=== PATIENT | female | born 1990 | race Caucasian/White ===

== ENCOUNTER → 2017-04-09 02:19 | Observation (INO) ==
--- NOTE | 2017-04-08 22:21 | OB/GYN History & Physical ---
Date of Encounter: 04/08/17 Time of Encounter: 22:19 Assessment and Plan (1) 26 weeks gestation of Current visit: Yes Status: Acute heart tones 130s baseline with accelerations, CAT 1. [place] shows no contractions or uterine activity. Fetus is audibly active and movement is appreciated by mother (2) Abdominal tenderness, left lower quadrant Current visit: Yes Status: Acute Concern for possible placental abruption as patient has an anterior placenta by ultrasound during anatomy scan. Plan for ultrasound assessment of placenta Qualifiers: Presence of rebound: absent Qualified Code(s): R10.814 - Left lower quadrant abdominal tenderness (3) Fall as cause of accidental injury at home as place of occurrence Current visit: Yes Status: Acute Monitor for stability and evidence of abruption or labor. Blood type is known to be O+. Patient is cleared from labor and delivery she will be sent to emergency room for musculoskeletal evaluation Qualifiers: Encounter type: initial encounter Qualified Code(s): W19.XXXA - Unspecified fall, initial encounter; Y92.009 - Unspecified place in unspecified non-institutional (private) residence as the place of occurrence of the external cause; Y92.009 - Unspecified place in unspecified non-institutional ( private) residence as the place of occurrence of the external cause History of Present Illness Chief complaint: 26 weeks w/ fall HPI: Ms. Talbert is a 26 year old female 3 para 2 at 26 weeks and 5 days who presents to labor and delivery with this history of falling on her bottom at 2000 today. She reports slipping on a toy and thinks she may have hit her head on the [place] she went down but did not hit in the floor. She was short of breath when she first fell. She reports that her fetus has been moving since then. She denies any contractions, vaginal bleeding or loss of fluid but it is sore in the lower abdomen particularly on the left side. She denies any direct abdominal trauma. She feels sharp shooting pains of her back in the midline. She was able to void on arrival. Her blood type is O+. She received care with Dr. Navarro. She has a heart-shaped uterus and has had 2 sections. Her largest was 9 lbs. 9 oz. This is complicated by maternal obesity, history of at 2 and tobacco use Past Med Surg Social Fam HX - Past Medical History Source: patient, old records reviewed Medical history: no medical history, other ( issues) Psychiatric history: no psych history - Past Surgical History Surgical History: , other - Social History Smoking Status: Current every day smoker Smokeless Tobacco Status: No Alcohol use: none Drug use: none Current living situation: Home - Independent Obstetrical History - Pregnancies : 3 Para: 2 Term: 2 Livin Medications and Allergies No Known Home Drugs 09/30/15 [History] 3 Allergy/AdvReac Type Severity Reaction Status Date / Time Sulfa (Sulfonamide AdvReac Hives Unverified 09/13/15 08:45 Antibiotics) Review of System OB All systems PM: reviewed and no additional remarkable complaints except as stated - Constitutional Constitutional ROS IM: fatigue, weight gain - Gastrointestinal Gastrointestinal: abdominal pain (Left lower quadrant) - Genitourinary Genitourinary: urinary incontinence - Muscloskeletal Musculoskeletal: back pain Musculoskeletal: bilateral: hip pain - Neurological Nerological: radicular pain Exam - Vital Signs Vital signs: afeb, VSS - Constitutional Constitutional: well developed, well nourished, no acute distress, obese - HEENT HEENT: Normocephaly, Mucus Membranes Moist - Neck Neck exam: normal inspection, supple - Lungs Respiratory exam: CTAB - Cardiovascular Cardiovascular exam: RRR - Abdomen Abdomen: Present: bowel sounds normal, gravid. Absent: non tender (Soft with tenderness in the lower abdomen left greater than right, no peritoneal signs) Abdomen detail: right lower quadrant: tenderness, left lower quadrant: tenderness - Extremities Extremities exam: pedal edema, warm Deep Tendon Reflex Grade: 2+ Normal - Vulva Vulva: bilateral: normal - Vagina Vagina: Present: normal moisture - Comments Comments: No external evidence of trauma, melton or bruising to the back box or lower extremities. There were no melton on the abdomen Results All other labs normal.
[2017-04-09 00:01] LABS: Amphetamine Screen,Urine Negative ng/mL (Cutoff=1000); Barbiturate Screen,Urine Negative ng/mL (Cutoff=200); Benzodiazepines Screen,Urine Negative ng/mL (Cutoff=200); Cannabinoid Screen,Urine Negative ng/mL (Cutoff = 50); Cocaine Screen,Urine Negative ng/mL (Cutoff= 300); Opiate Screen,Urine Negative ng/mL (Cutoff=300); Phencyclidine Screen,Urine Negative ng/mL (Cutoff=25)
--- NOTE | 2017-04-09 02:40 | Discharge Summary ---
Date of Encounter: 04/09/17 Time of Encounter: 02:15 - Discharge Diagnosis (1) Fall as cause of accidental injury at home as place of occurrence Priority: Primary Status: Acute Comments: Monitoring - reassuring, NST reactive. Total of 4 hours of monitoring No vaginal bleeding Ultrasound: A single live intrauterine is present. heart rate measures 136 beats per minute. There is normal body and limb movement. The fetus is in transverse position. The placenta is located anteriorly extending to the right. TORIN 14.8 cm. Estimated weight is 1397 grams which correlates to 58.6 percentile. Estimated gestational age by current ultrasound is 28 weeks and 4 days. The placenta is unremarkable. Pt feels ready to be discharged - still having some back pain, but her abdominal pain seems mildly improved Recommended that she return to the ED for further evaluation of her pain Qualifiers: Encounter type: initial encounter Qualified Code(s): W19.XXXA - Unspecified fall, initial encounter; Y92.009 - Unspecified place in unspecified non-institutional (private) residence as the place of occurrence of the external cause; Y92.009 - Unspecified place in unspecified non-institutional ( private) residence as the place of occurrence of the external cause (2) 26 weeks gestation of Priority: Secondary Status: Acute (3) Abdominal tenderness, left lower quadrant Priority: Secondary Status: Acute Qualifiers: Presence of rebound: absent Qualified Code(s): R10.814 - Left lower quadrant abdominal tenderness - Discharge Medications Home Medications: No Known Home Drugs 09/30/15 [History] Allergies/Adverse Reactions: 3 Allergy/AdvReac Type Severity Reaction Status Date / Time Sulfa (Sulfonamide AdvReac Hives Unverified 09/13/15 08:45 Antibiotics) sulfamethoxazole AdvReac Hives Verified 04/08/17 22:42 [From Bactrim] trimethoprim [From Bactrim] AdvReac Hives Verified 04/08/17 22:42 Data Procedures and tests throughout hospitalization: Laboratory Tests 04/08/17 23:45 Urine Opiates Screen Negative Ur Barbiturates Screen Negative Ur Phencyclidine Scrn Negative Ur Amphetamines Screen Negative U Benzodiazepines Scrn Negative Urine Cocaine Screen Negative U Marijuana (THC) Screen Negative Labs on day of discharge: Labs from last 24 hours 04/08/17 23:45 Urine Opiates Screen Negative Ur Barbiturates Screen Negative Ur Phencyclidine Scrn Negative Ur Amphetamines Screen Negative U Benzodiazepines Scrn Negative Urine Cocaine Screen Negative U Marijuana (THC) Screen Negative - Impressions ITS Impressions Obstetrics Ultrasound 04/08/17 22:20 IMPRESSION: Single live intrauterine with gestational age of 20 weeks and 4 days by current sonographic biometry. The estimated due date is 06/27/2017. The placenta is unremarkable. D/ / Julio Cesar Benavides MD / Julio Cesar Benavides MD Interpreting Provider: Julio Cesar Benavides MD Date of admission: 04/08/17 22:01 Discharging clinician: Yomi Perez Anticipated date of discharge: 04/09/17 - Patient Status Disposition: Transfer Other Condition: Good Functional capacity at discharge: independent ambulation Overall status at discharge: patient is progressing back to baseline - Discharge Instructions Additional Instructions: LABOR AND DELIVERY DISCHARGE INSTRUCTIONS Signs and Symptoms to be Reported to your Doctor Immediately: * Sudden gush, continuous or intermittent lead of fluid from vagina (note the time of gush and color of fluid) * Onset of bright red vaginal bleeding with or without pain (if you had a vaginal exam during this visit you may notice some dark red spotting. This is normal.) * Lower abdominal cramping or backache that is premenstrual-like feeling. * More than 6 contractions in one hour. * Burning during urination, having to urinate more frequently or pain in your mid-back. * A change in the baby's activity. This could be an increase or decrease in activity. * Severe headache which does not go away with tylenol. * Sudden swelling in the face, hands, arms and/or legs. * Upper abdominal pain - sometimes associated with heartburn or nausea and is not relieved by Maalox, Mylanta or Tums. * Dizziness or blurred vision or visual disturbances (seeing stars/lights). * Kick Counts One hour after a meal, lay down on one side in a quiet place. Count the number of young the baby moves during an hour. If less than 6 movements, notify your physician. Diet: *Force fluids - 8-10 tall glasses of fluid per day. May include popsicles and jello. *Limit caffeine - this includes chocolate, coffee, tea, any soft drink containing such as all kenroy, Georgi Yellow and Mountain Dew - Diet and Activity Activity: increase activity as tolerated Diet: advance to your usual diet Hospital Course BLOOD BANK MANAGER Reason for admission: other (Fall in ) Discharge diagnosis: other (Fall in ) Time Attestation: Total time spent providing and/or coordinating discharge services: Time Spent: Greater than 30 minutes Exam - Constitutional General appearance IM: A&O X 3, no acute distress - Respiratory Respiratory exam: Present: CTAB - Cardiovascular Cardiovascular exam IM: Present: RRR, +S1, +S2 - GI/Abdominal GI/Abdominal exam IM: normal bowel sounds, tenderness (left lower quadrant, improving), no peritoneal signs - Extremities Exam Extremities exam IM: Present: normal capillary refill, normal inspection, pedal edema (mild bilaterally) - Neurological Exam Neurological exam: alert, no focal deficits - VTE Reasons for not Prescribing Prophylaxis: Treatment not Indicated - Low risk for VTE - Attending Attestation I examined this patient and my medical decision-making was reviewed with the Resident Physician. I agree with the documented findings, disposition and treatment plan as described except to the extent set forth below.
== END | disposition other institution (70) ==
LOC: 1NENULAB
PROVIDERS: ADMIT Obstetrics & Gynecology; ATTEND Obstetrics & Gynecology

== ENCOUNTER 2017-06-04 15:14 | Inpatient (IN) ==
[2017-06-04] MEDS ORDERED: 0.9 % Sodium Chloride 1,000 ML IVC ONE (16:37)
[2017-06-04 16:59] LABS: Basophils % 0.3 %; Eosinophils % 0.1 %; Hematocrit 38.8 % (35.3-44.9); Hemoglobin 12.3 g/dL (11.5-15.4); Immature Granulocytes % 1.5 % (0-4); Lymphocytes % 7.2 %; Mean Corpuscular HGB Conc 31.7 g/dL (31.6-35.5); Mean Corpuscular Hemoglobin 25.8 pg (28.0-33.3); Mean Platelet Volume 9.8 fL (9.4-12.4); Monocytes % 7.6 %; Platelet Count 293 K/mcL (140-400); Red Blood Count 4.76 M/mcL (3.82-4.97); Red Cell Distribution Width 14.6 % (11.5-14.5); Segmented Neutrophils % 83.3 %
[2017-06-04 17:00] LABS: Mean Corpuscular Volume 81.5 fL (83.0-100.0)
[2017-06-04 17:22] LABS: BUN/Creatinine Ratio 5 (6-26); Blood Urea Nitrogen 3 mg/dL (6-20); Calcium 9.2 mg/dL (8.6-10.3); Carbon Dioxide 21 mEq/L (23-29); Chloride 101 mEq/L (98-107); Glucose 89 mg/dL (70-105); Osmolality,Calculated 268 (280-300); Potassium 3.5 mEq/L (3.5-5.1); Sodium 131 mEq/L (136-145); eGFR For African Americans > 60 (> 60); eGFR For Non-African Americans > 60 (> 60)
--- NOTE | 2017-06-04 18:34 | Emergency Department Note ---
Disposition <Hussein Prather Fernando - Last Filed: 06/04/17 20:00> Time of Disposition: 18:56 <Antelmo Mccarthy - Last Filed: 06/04/17 20:22> Clinical Impression: Flu, Myalgia, contractions Nausea and vomiting Qualifiers: Vomiting type: unspecified Vomiting Intractability: non-intractable Qualified Code(s): R11.2 - Nausea with vomiting, unspecified Disposition: Admitted As Inpatient Condition: Fair URI/Sore Throat HPI - General Source: patient Limitations: no limitations Nursing Notes Reviewed: Yes Vital Signs Reviewed: Yes <Hussein Prather - Last Filed: 06/04/17 20:00> - General Source: patient Limitations: no limitations Nursing Notes Reviewed: Yes Vital Signs Reviewed: Yes <Antelmo Mccarthy - Last Filed: 06/04/17 20:22> - General Chief Complaint: ED Upper Respiratory Infection Stated Complaint: flu like symptoms Time Seen by Provider: 06/04/17 16:22 - History of Present Illness HPI Narrative: 26-year-old female who complains of flulike symptoms of myalgias, shortness of breath, cough congestion sinus pressure, chills, shortness of breath and weakness. She also complains of severe abdominal cramping bilateral flanks. Davian and has nausea and vomiting that started one day ago times for bouts and 4 bouts today. Patient is 34 weeks gestation and is a [id number]. Patient denies any other medical conditions. (Antelmo Mccarthy) - Related Data Home Medications Medication Instructions Recorded Confirmed Pnv95/Ferrous Fumarate/FA 1 each PO DAILY 06/04/17 06/04/17 [ Vitamin Tablet] Allergies Allergy/AdvReac Type Severity Reaction Status Date / Time Sulfa (Sulfonamide AdvReac Hives Unverified 06/04/17 15:21 Antibiotics) sulfamethoxazole AdvReac Hives Verified 06/04/17 15:21 [From Bactrim] trimethoprim [From Bactrim] AdvReac Hives Verified 06/04/17 15:21 All systems ED: reviewed and negative except as stated. Review of Systems: As Per HPI Constitutional: Reports: fever, chills, weakness Respiratory: Reports: cough, dyspnea, sputum production. Denies: hemoptysis Gastrointestinal: Reports: abdominal pain, nausea, vomiting. Denies: diarrhea, hematemesis, melena, hematochezia Genitourinary: Reports: urgency, dysuria, frequency. Denies: hematuria, discharge Musculoskeletal: Denies: back pain, neck pain Integumentary: Denies: rash <Antelmo Mccarthy - Last Filed: 06/04/17 20:22> URI PMH - Past Medical History Medical history: Reports: no medical history, other Surgical history: Reports: , cholecystectomy, other Psychiatric history: Reports: no psych history CASINO FLOORPERSON history: Reports: no CASINO FLOORPERSON history - Social History Smoking Status: Current every day smoker Alcohol use: Reports: none Drug use: Reports: none <Antelmo Mccarthy - Last Filed: 06/04/17 20:22> Physical Exam <Hussein Prather - Last Filed: 06/04/17 20:00> - General Limitations: no limitations General appearance: alert <Antelmo Mccarthy - Last Filed: 06/04/17 20:22> Vital Signs Temperature 99.3 F 06/04/17 15:22 Pulse Rate 136 06/04/17 15:22 Respiratory Rate 22 06/04/17 15:22 Blood Pressure 113/76 06/04/17 15:22 O2 Sat by Pulse Oximetry 96 06/04/17 15:22 Temperature 99.3 F 06/04/17 15:22 Pulse Rate 120 06/04/17 18:19 Respiratory Rate 18 06/04/17 18:19 Blood Pressure 135/68 06/04/17 18:19 O2 Sat by Pulse Oximetry 96 06/04/17 18:19 Oxygen Delivery Oxygen Delivery Room Air CONSTITUTIONAL: Alert and oriented X3, well-nourished, well appearing, in no apparent distress HEAD: Normocephalic; atraumatic. EYES: PERRL, no scleral icterus. NOSE: The nose is normal in appearance without rhinorrhea RESP: Normal chest excursion with respiration; breath sounds clear and equal bilaterally; no wheezes, rhonchi, or rales CARD: Regular rhythm, without murmurs, rub or gallop ABD: Non-distended; non-tender, soft,without rigidity, rebound or guarding SKIN: Normal for age and race; warm and dry; no apparent lesions POC US: heart rate 133, good motion (Antelmo Mccarthy) Vital Signs Temperature 99.3 F 06/04/17 15:22 Pulse Rate 136 06/04/17 15:22 Respiratory Rate 22 06/04/17 15:22 Blood Pressure 113/76 06/04/17 15:22 O2 Sat by Pulse Oximetry 96 06/04/17 15:22 Temperature 99.4 F 06/04/17 19:54 Pulse Rate 114 06/04/17 19:54 Respiratory Rate 16 06/04/17 19:54 Blood Pressure 129/84 06/04/17 19:54 O2 Sat by Pulse Oximetry 93 06/04/17 19:54 Oxygen Delivery Oxygen Delivery Room Air Upper Respiratory Infection - Lab Data Result diagrams: 06/04/17 16:40 06/04/17 16:40 <Hussein Prather - Last Filed: 06/04/17 20:00> - Lab Data Lab results reviewed: Yes I reviewed the patient's lab results. Result diagrams: 06/04/17 16:40 06/04/17 16:40 - Radiology Data Radiology results reviewed: Yes I reviewed the patient's radiology results. <Antelmo Mccarthy - Last Filed: 06/04/17 20:22> - MDM Narrative Medical decision making narrative: Patient 34 weeks gestation of third complicated by viral illness. Patient tested positive for flu. Patient's fetus has good heart tones at 133, and good motion. OB was consulted since patient is unable tolerate by mouth intake. Patient is tachycardic, tachypneic, and having abdominal contractions most likely from irritability caused by viral illness. Chest x-ray negative for signs of pneumonia. Patient has a mildly elevated WBC count of 13.2 most likely from stress and . Other lab findings clinically unremarkable. Discussion with Tatiana Gaona veneer stacker of OB: She recommends overnight admission, but cannot take her down in the OB sherman because of the flu. Patient will be admitted to medicine floor and hospitalist will be consult by OB. Patient understands and agrees to treatment plan. Patient still was not tolerating oral fluids without emesis. Patient is receiving IV normal saline. Patient is currently still having flank cramping, but is not in severe distress. (Antelmo Mccarthy) - Lab Data Lab Results 06/04/17 06/04/17 06/04/17 Range/Units 16:40 16:40 18:40 WBC 13.2 H (4.3-11.1) K/mcL RBC 4.76 (3.82-4.97) M/mcL Hgb 12.3 (11.5-15.4) g/dL Hct 38.8 (35.3-44.9) % MCV 81.5 L D (83.0-100.0) fL MCH 25.8 L (28.0-33.3) pg MCHC 31.7 (31.6-35.5) g/dL RDW 14.6 H (11.5-14.5) % Plt Count 293 (140-400) K/mcL MPV 9.8 (9.4-12.4) fL Immature Gran % 1.5 (0-4) % Seg Neutrophils % 83.3 % Lymphocytes % 7.2 % Monocytes % 7.6 % Eosinophils % 0.1 % Basophils % 0.3 % Neutrophils # 11.0 H (1.6-8.9) K/mcL Lymphocytes # 1.0 (0.6-4.6) K/mcL Monocytes # 1.0 (0.0-1.3) K/mcL Eosinophils # 0.0 (0.0-0.6) K/mcL Basophils # 0.0 (0.0-0.2) K/mcL Sodium 131 L (136-145) mEq/L Potassium 3.5 (3.5-5.1) mEq/L Chloride 101 (98-107) mEq/L Carbon Dioxide 21 L (23-29) mEq/L BUN 3 L (6-20) mg/dL Creatinine 0.57 L (0.60-1.20) mg/dL Est GFR ( Amer) > 60 (> 60) Est GFR (Non-Af Amer) > 60 (> 60) BUN/Creatinine Ratio 5 L (6-26) Glucose 89 (70-105) mg/dL Calculated Osmolality 268 L (280-300) Calcium 9.2 (8.6-10.3) mg/dL Urine Color Yellow (Yellow) Urine Clarity Cloudy A (Clear) Urine pH 6.5 (5.0-8.0) pH Units Ur Specific [place] < 1.005 L (1.010-1.025) Urine Protein Negative (Neg-Trace) mg/dL Urine Glucose (UA) Normal (Normal) mg/dL Urine Ketones Trace H (Negative) mg/dL Urine Blood Trace H (Negative) Urine Nitrite Negative (Negative) Urine Bilirubin Negative (Negative) Urine Urobilinogen Normal (Normal) mg/dL Ur Leukocyte Esterase Negative (Negative) Urine Microscopic RBC 3-5 H (0-3) per hpf Urine Microscopic WBC 3-5 H (0-3) per hpf Ur Squamous Epith Cells Many H (None-Few) per lpf Urine Bacteria Few (None-Few) per hpf Hyaline Casts None Seen (None-Few) per lpf - Radiology Data Chest X-Ray 06/04/17 16:38 IMPRESSION: Unremarkable chest. D/ / Lj Millan MD / Lj Millan MD Interpreting Provider: Lj Millan MD (Antelmo Mccarthy) Attestation Statement <Hussein Prather - Last Filed: 06/04/17 20:00> <Antelmo Mccarthy - Last Filed: 06/04/17 20:22> - Attestation Attestation: I, Hussein Prather, examined this patient and my medical decision-making was reviewed with the VESSEL ORDINARY SEAMAN/PA/Advanced Practice Nurse/Resident Physician. I agree with the documented findings, disposition and treatment plan as described except to the extent set forth below. 26-year-old female presents emergency Department with concerns of flulike symptoms and abdominal pain. Patient is 34 weeks gestation with scheduled in [address] Navarro for her OB care. Patient reports generalized body aches and is influenza a positive on testing in the emergency department. The OB physician was notified of the patient's arrival and OB nursing staff performed heart tones which showed a rate in the 120s. Patient has difficulty tolerating by mouth intake in the emergency department. Her rate improved with IV fluids. BP within normal limits. Patient feels comfortable with plan for admission to hospital for further care and evaluation. She was given Tamiflu in the emergency department. (Hussein Prather )
[2017-06-04] MEDS ORDERED: Acetaminophen 325 MG TABLET PO ONE (18:54)
[2017-06-04 19:00] LABS: Bilirubin,Urine Negative (Negative); Blood,Urine Trace (Negative); Clarity,Urine Cloudy (Clear); Color,Urine Yellow (Yellow); Glucose,Urine (UA) Normal (Normal); Ketones,Urine Trace mg/dL (Negative); Leukocyte Esterase,Urine Negative (Negative); Nitrite,Urine Negative (Negative); PH,Urine 6.5 pH Units (5.0-8.0); Protein,Urine Negative (Neg-Trace); Specific Gravity,Urine < 1.005 (1.010-1.025); Urobilinogen,Urine Normal (Normal)
[2017-06-04 19:02] LABS: Bacteria,Urine Few per hpf (None-Few); Hyaline Casts,Urine None Seen per lpf (None-Few); Squamous Epithelial Cell,Urine Many per lpf (None-Few)
[2017-06-04] MEDS ORDERED: Famotidine 20 MG/2 ML VIAL IVP PRN (19:42)
[2017-06-04] MEDS ORDERED: Ondansetron 4 MG/2 ML VIAL IVP PRN (19:42)
[2017-06-04] MEDS ORDERED: Naloxone 0.4 MG/ML INJ IVP PRN (19:42)
[2017-06-04] MEDS ORDERED: Acetaminophen 325 MG TABLET PO PRN (19:48)
[2017-06-04] MEDS ORDERED: Ringers Solution, Lactated 1,000 ML IVC ONE (20:40)
--- NOTE | 2017-06-04 21:14 | OB/GYN History & Physical ---
Date of Encounter: 06/04/17 Time of Encounter: 20:20 Assessment and Plan (1) 34 weeks gestation of Current visit: Yes Status: Acute admit for observation consult hospitalist for medical management (2) Influenza A Current visit: Yes Status: Acute Tamiflu (3) Cough Current visit: Yes Status: Acute Robitussin q 6 prn History of Present Illness Chief complaint: Influenza A, 34w6d gestation HPI: Ms. Talbert is a 26 year old female @ 34w6d presented to ER with c/o flu like symptoms including cough congestion sinus pressure, chills, shortness of breath and weakness. She also complains abdominal pain and cramping following nausea and vomiting. Patient reports she is unsure if she had a fever due to taking tylenol. Patient last received Tylenol in ER prior to being transferred to unit. Past Med Surg Social Fam HX - Past Medical History Source: patient Medical history: no medical history, other Psychiatric history: no psych history - Past Surgical History Surgical History: , cholecystectomy, other - Social History Smoking Status: Current every day smoker Smokeless Tobacco Status: No Alcohol use: none Drug use: none Activity Level: Independent ambulation Recent Out of Country Travel Within the Last 8 Weeks: No Exposure or Possible Exposure to Illness During Travel: No - Family History Mother Living Status: Still Living Hx Family Cardiac Disorders: No Hx Family Respiratory Disorders: No Hx Family Cancer: No Hx Family GI Disorders: No Hx Family Endocrine Disorder: No Hx Family Neuromuscular Disorders: No Hx Family Neurologic Disorders: No Hx Family HEENT Disorders: No Hx Family Autoimmune Disorders: No Obstetrical History - Pregnancies : 3 Para: 2 Term: 2 : 0 Ab's: 0 Livin Medications and Allergies Pnv95/Ferrous Fumarate/FA [ Vitamin Tablet] 1 each PO DAILY 06/04/17 [ History] 3 Allergy/AdvReac Type Severity Reaction Status Date / Time Sulfa (Sulfonamide AdvReac Hives Unverified 06/04/17 15:21 Antibiotics) sulfamethoxazole AdvReac Hives Verified 06/04/17 15:21 [From Bactrim] trimethoprim [From Bactrim] AdvReac Hives Verified 06/04/17 15:21 Review of System OB - Constitutional Constitutional ROS IM: chills, fatigue, fever(s) (unsure), no headache(s) - Cardiovascular Cardiovascular: no chest pain, no lightheadedness, no palpitations, no syncope - Respiratory Respiratory: cough, no wheezing - Gastrointestinal Gastrointestinal: abdominal pain (lower abdominal pain after coughing), nausea, vomiting, no diarrhea, no heartburn - Genitourinary Genitourinary: no abnormal vaginal bleeding, no difficulty urinating, no dysuria , no urinary frequency, no urinary incontinence, no urinary urgency, no vaginal discharge, no vaginal odor, no vaginal pruritis Exam - Vital Signs Vital signs: Initial Vital Signs Temp Pulse Resp BP Pulse Ox 99.3 F 136 22 113/76 96 06/04/17 15:22 06/04/17 15:22 06/04/17 15:22 06/04/17 15:22 06/04/17 15:22 - Constitutional Constitutional: well developed, well nourished, obese - HEENT HEENT: Normocephaly - Neck Neck exam: full ROM, supple - Lungs Respiratory exam: CTAB - Cardiovascular Cardiovascular exam: tachycardia - Abdomen Abdomen: Present: bowel sounds normal, gravid, non tender - Extremities Extremities exam: full ROM, normal capillary refill, normal inspection Deep Tendon Reflex Grade: 2+ Normal - Cervix Dilation: 0 Station: -3 - Uterus Uterus exam: Present: normal size, normal contour - Comments Comments: NST:FHR 130 bpm moderate variability +15x15 accels no decels noted. Contractions 3-5 min apart. Discussed NST with Dr. Hobbs order given to discontinue monitoring at this time. Will repeat in am and prn if patient reports feeling contractions. Results Result Diagrams: 06/04/17 16:40 06/04/17 16:40 Abnormal lab results WBC 13.2 K/mcL (4.3-11.1) H 06/04/17 16:40 MCV 81.5 fL (83.0-100.0) L D 06/04/17 16:40 MCH 25.8 pg (28.0-33.3) L 06/04/17 16:40 RDW 14.6 % (11.5-14.5) H 06/04/17 16:40 Neutrophils # 11.0 K/mcL (1.6-8.9) H 06/04/17 16:40 Sodium 131 mEq/L (136-145) L 06/04/17 16:40 Carbon Dioxide 21 mEq/L (23-29) L 06/04/17 16:40 BUN 3 mg/dL (6-20) L 06/04/17 16:40 Creatinine 0.57 mg/dL (0.60-1.20) L 06/04/17 16:40 BUN/Creatinine Ratio 5 (6-26) L 06/04/17 16:40 Calculated Osmolality 268 (280-300) L 06/04/17 16:40 Urine Clarity Cloudy (Clear) A 06/04/17 18:40 Ur Specific [place] < 1.005 (1.010-1.025) L 06/04/17 18:40 Urine Ketones Trace mg/dL (Negative) H 06/04/17 18:40 Urine Blood Trace (Negative) H 06/04/17 18:40 Urine Microscopic RBC 3-5 per hpf (0-3) H 06/04/17 18:40 Urine Microscopic WBC 3-5 per hpf (0-3) H 06/04/17 18:40 Ur Squamous Epith Cells Many per lpf (None-Few) H 06/04/17 18:40 All other labs normal. - VTE Reasons for not Prescribing Prophylaxis: Treatment not Indicated - Low risk for VTE
[2017-06-04] MEDS: Ringers Solution, Lactated 1,000 ML IVC SCH (22:09)
[2017-06-05] MEDS: GuaiFENesin Liq 200 MG/10 ML UDC PO PRN ×2 (00:59→08:15)
[2017-06-05] MEDS: Ringers Solution, Lactated 1,000 ML IVC SCH (06:20)
--- NOTE | 2017-06-05 11:13 | Discharge Summary ---
Date of Encounter: 06/05/17 Time of Encounter: 11:12 - Discharge Diagnosis (1) Influenza A Priority: Primary Status: Acute Comments: Complete Tamiflu for 5 days Discharge home today Follow up with [employer] next week (2) 35 weeks gestation of Priority: Secondary Status: Acute Comments: Return to office for routine OB care next week. Take full course of Tamiflu - Discharge Medications Prescriptions: Oseltamivir [Tamiflu] 75 mg PO BID #8 capsule Home Medications: Pnv95/Ferrous Fumarate/FA [ Vitamin Tablet] 1 each PO DAILY 06/04/17 [ History] Acetaminophen [Tylenol] 650 mg PO Q6HR PRN tablet 06/05/17 [Rx] Oseltamivir [Tamiflu] 75 mg PO BID #8 capsule 06/05/17 [Rx] Allergies/Adverse Reactions: 3 Allergy/AdvReac Type Severity Reaction Status Date / Time Sulfa (Sulfonamide AdvReac Hives Unverified 06/04/17 15:21 Antibiotics) sulfamethoxazole AdvReac Hives Verified 06/04/17 15:21 [From Bactrim] trimethoprim [From Bactrim] AdvReac Hives Verified 06/04/17 15:21 Date of admission: 06/05/17 03:11 Primary care physician: PCP NONE Discharging clinician: Luisana Santos Anticipated date of discharge: 06/05/17 - Patient Status Disposition: Home, Self-Care Condition: Fair Functional capacity at discharge: independent ambulation Overall status at discharge: patient is progressing back to baseline - Discharge Instructions Follow Up With: NONE,PCP [Primary Care Provider] - Joelle Navarro, [Partnered Physician] - - Diet and Activity Activity: resume usual activities as tolerated Diet: regular diet Hospital Course [employer] Reason for admission: other (Flu symptoms) Hospital course: 26-year-old at 34w6d admitted for Influenza A with tachycardia. She received IV fluids, symptom treatment and tamiflu overnight. Today she reports feeling better and desires discharge home. To follow up in office with Dr. Navarro next week. Time Attestation: Total time spent providing and/or coordinating discharge services: Time Spent: Less than 30 minutes Exam - Constitutional Vitals: Temp Pulse Resp BP Pulse Ox 98.0 F 99 18 120/78 95 06/05/17 07:43 06/05/17 07:43 06/05/17 07:43 06/05/17 07:43 06/05/17 07:43 General appearance IM: A&O X 3, pleasant, no acute distress - Respiratory Respiratory exam: Present: decreased breath sounds, CTAB - Cardiovascular Cardiovascular exam IM: Present: RRR, +S1, +S2 - GI/Abdominal GI/Abdominal exam IM: normal bowel sounds, soft - Rectal Rectal exam: deferred - Extremities Exam Extremities exam IM: Present: full ROM, normal capillary refill, normal inspection - Neurological Exam Neurological exam: alert, normal gait, oriented X3 - VTE Reasons for not Prescribing Prophylaxis: Treatment not Indicated - Low risk for VTE
[2017-06-05 11:39] VITALS: BP 103/63
== END 2017-06-05 12:03 | disposition home or self-care (01) | DRG 781 ==
LOC: 3BNU 15:14 → EMEROO 15:14 → 3BNU 19:26
PROVIDERS: ADMIT Advanced Practice Midwife; ATTEND Advanced Practice Midwife

== ENCOUNTER 2017-06-16 23:14 | Inpatient (IN) ==
--- NOTE | 2017-06-17 00:05 | Emergency Department Note ---
Disposition Clinical Impression: Multifocal pneumonia, Hypoxemia Qualifiers: Weeks of gestation: 36 weeks Qualified Code(s): Z3A.36 - 36 weeks gestation of Disposition: Admitted As Inpatient Condition: Fair Time of Disposition: 05:11 URI/Sore Throat HPI - General Chief Complaint: ED Upper Respiratory Infection Stated Complaint: RIGHT SIDE RIB PAIN 36 WEEKS PREG. Time Seen by Provider: 06/17/17 00:00 Source: patient Mode of arrival: ambulatory Limitations: no limitations Nursing Notes Reviewed: Yes Vital Signs Reviewed: Yes - History of Present Illness HPI Narrative: Patient is a 26-year-old female who patient stated [facility] ED with a chief complaint of worsening cough. Patient states she was diagnosed with influenza A several weeks ago and was admitted to the hospital and given Tamiflu. She states since then, she has continued to worsen. Patient is a smoker and continues to smoke daily. States she coughed really hard and had severe right-sided lower rib pain. Denies any nausea, vomiting. States she has had chills. No problems with urination or bowel movements. No abdominal pain. Patient is at 36 weeks. Pt Subjective Complaint: cough Onset (ago): week(s) Duration: gradually worsening Severity: severe Improves with: nothing Worsens with: nothing Associated symptoms: Reports: chills, cough. Denies: nausea, vomiting, dysuria Treatments prior to arrival: other healthcare encounter for this problem - Related Data Home Medications Medication Instructions Recorded Confirmed Pnv95/Ferrous Fumarate/FA 1 each PO DAILY 06/04/17 06/17/17 [ Vitamin Tablet] Previous Rx's Medication Instructions Recorded Acetaminophen [Tylenol] 650 mg PO Q6HR PRN tablet 06/05/17 Allergies Allergy/AdvReac Type Severity Reaction Status Date / Time Sulfa (Sulfonamide AdvReac Hives Verified 06/16/17 23:17 Antibiotics) sulfamethoxazole AdvReac Hives Verified 06/16/17 23:17 [From Bactrim] trimethoprim [From Bactrim] AdvReac Hives Verified 06/16/17 23:17 All systems ED: reviewed and negative except as stated. URI PMH - Past Medical History Medical history: Reports: no medical history, other Surgical history: Reports: , cholecystectomy, other Psychiatric history: Reports: no psych history MEDICAL RECORDS TECH history: Reports: no MEDICAL RECORDS TECH history - Social History Smoking Status: Current every day smoker Alcohol use: Reports: none Drug use: Reports: none Physical Exam - General Limitations: no limitations General appearance: alert, in no apparent distress - Head Head exam: atraumatic, normocephalic, normal inspection - Eye Eye exam: Present: normal appearance, EOMI - ENT ENT exam: normal exam, normal oropharynx, mucous membranes moist - Neck Neck exam: Present: normal inspection, full ROM, trachea midline - Chest Chest inspection: Present: normal inspection, symmetric chest wall rise - Respiratory Respiratory exam: Present: other (decreased breath sounds b/l) - Cardiovascular Cardiovascular exam: Present: regular rate, normal rhythm, normal heart sounds - Abdominal Exam Abdominal exam: Present: soft, Non-Tender, other (gravid uterus). Absent: tenderness, distention, guarding, rebound, rigidity - Extremities Exam Extremities exam: Present: normal inspection, full ROM. Absent: tenderness, pedal edema - Neurological Exam Neurological exam: Present: alert, oriented X3 - Psychiatric Psychiatric exam: Present: normal affect, normal mood - Skin Skin exam: Present: warm, dry, intact, normal color Course Course Narrative: Patient seen and examined. Cough with severe right lower rib pain. Worse with palpation. Patient is at 36 weeks. She was diagnosed with flu and admitted approximately 2 weeks ago. Patient continues to smoke every day. X- ray was ordered. - Reevaluation(s) Reevaluation #1: X-ray shows multifocal pneumonia. Lab work, IV fluids, IV antibiotics including vancomycin and Zosyn ordered. Discussed with MEDICAL RECORDS TECH personal driver resident. Lab work shows leukocytosis of 16,000. Patient is currently on oxygen at 5 L saturating 94%. Patient has been admitted to OB service. Time: 04:09 Reevaluation #2: Patient was starting to contract more regularly. OB was notified. Time: 05:12 Vital Signs Temperature 98.2 F 06/16/17 23:15 Pulse Rate 91 06/16/17 23:15 Respiratory Rate 16 06/16/17 23:15 Blood Pressure 90/55 06/16/17 23:15 O2 Sat by Pulse Oximetry 96 06/16/17 23:15 Temperature 98.2 F 06/16/17 23:15 Pulse Rate 100 06/17/17 02:11 Respiratory Rate 20 06/17/17 02:11 Blood Pressure 120/77 06/17/17 02:11 O2 Sat by Pulse Oximetry 96 06/17/17 02:11 Oxygen Delivery Oxygen Delivery Nasal Cannula Upper Respiratory Infection - Medical Records Medical records reviewed: Yes I reviewed the patient's medical records. - Lab Data Lab results reviewed: Yes I reviewed the patient's lab results. Result diagrams: 06/17/17 01:23 06/17/17 01:23 Lab Results 06/16/17 06/17/17 06/17/17 Range/Units 23:30 01:23 01:23 WBC 16.9 H (4.3-11.1) K/mcL RBC 4.39 (3.82-4.97) M/mcL Hgb 11.1 L (11.5-15.4) g/dL Hct 35.8 (35.3-44.9) % MCV 81.5 L (83.0-100.0) fL MCH 25.3 L (28.0-33.3) pg MCHC 31.0 L (31.6-35.5) g/dL RDW 14.7 H (11.5-14.5) % Plt Count 411 H (140-400) K/mcL MPV 9.6 (9.4-12.4) fL Immature Gran % 0.9 (0-4) % Seg Neutrophils % 75.5 % Lymphocytes % 16.3 % Monocytes % 6.0 % Eosinophils % 1.1 % Basophils % 0.2 % Neutrophils # 12.7 H (1.6-8.9) K/mcL Lymphocytes # 2.7 (0.6-4.6) K/mcL Monocytes # 1.0 (0.0-1.3) K/mcL Eosinophils # 0.2 (0.0-0.6) K/mcL Basophils # 0.0 (0.0-0.2) K/mcL Nucleated RBCs/100 WBC 0.1 H (0) /100 WBC VBG pH (7.32-7.42) pH Units VBG pCO2 (41-51) mmHg VBG pO2 (25-50) mmHg VBG HCO3 (21-27) mEq/L Sodium 135 L (136-145) mEq/L Potassium 3.7 (3.5-5.1) mEq/L Chloride 106 (98-107) mEq/L Carbon Dioxide 21 L (23-29) mEq/L BUN 7 (6-20) mg/dL Creatinine 0.48 L (0.60-1.20) mg/dL Est GFR ( Amer) > 60 (> 60) Est GFR (Non-Af Amer) > 60 (> 60) BUN/Creatinine Ratio 15 (6-26) Glucose 90 (70-105) mg/dL Calculated Osmolality 278 L (280-300) Lactic Acid (0.5-2.2) mmol/L Calcium 9.3 (8.6-10.3) mg/dL Phosphorus 4.6 H (2.7-4.5) mg/dL Magnesium 1.8 (1.6-2.6) mg/dL Total Bilirubin 0.3 (0.3-1.0) mg/dL Direct Bilirubin 0.1 (0.0-0.2) mg/dL Indirect Bilirubin 0.2 (0.0-1.2) mg/dL AST 26 (13-39) Units/L ALT 73 H (7-52) Units/L Alkaline Phosphatase 236 H (34-104) Units/L Troponin I (< 0.04) ng/mL Serum Total Protein 6.9 (6.4-8.9) g/dL Albumin 3.2 L (3.5-5.7) g/dL Globulin 3.7 H (2.4-3.5) g/dL Albumin/Globulin Ratio 0.9 L (1.1-2.2) Urine Color Yellow (Yellow) Urine Clarity Cloudy A (Clear) Urine pH 6.5 (5.0-8.0) pH Units Ur Specific [place] 1.017 (1.010-1.025) Urine Protein Negative (Neg-Trace) mg/dL Urine Glucose (UA) Normal (Normal) mg/dL Urine Ketones Negative (Negative) mg/dL Urine Blood Negative (Negative) Urine Nitrite Negative (Negative) Urine Bilirubin Negative (Negative) Urine Urobilinogen Normal (Normal) mg/dL Ur Leukocyte Esterase Small H (Negative) Urine Microscopic RBC 0-3 (0-3) per hpf Urine Microscopic WBC 5-15 H (0-3) per hpf Ur Squamous Epith Cells Many H (None-Few) per lpf Urine Bacteria Few (None-Few) per hpf Hyaline Casts None Seen (None-Few) per lpf Ur Culture Indicated? NO. (NO) 06/17/17 06/17/17 06/17/17 Range/Units 01:23 01:23 01:43 WBC (4.3-11.1) K/mcL RBC (3.82-4.97) M/mcL Hgb (11.5-15.4) g/dL Hct (35.3-44.9) % MCV (83.0-100.0) fL MCH (28.0-33.3) pg MCHC (31.6-35.5) g/dL RDW (11.5-14.5) % Plt Count (140-400) K/mcL MPV (9.4-12.4) fL Immature Gran % (0-4) % Seg Neutrophils % % Lymphocytes % % Monocytes % % Eosinophils % % Basophils % % Neutrophils # (1.6-8.9) K/mcL Lymphocytes # (0.6-4.6) K/mcL Monocytes # (0.0-1.3) K/mcL Eosinophils # (0.0-0.6) K/mcL Basophils # (0.0-0.2) K/mcL Nucleated RBCs/100 WBC (0) /100 WBC VBG pH 7.40 (7.32-7.42) pH Units VBG pCO2 34 L (41-51) mmHg VBG pO2 128 H (25-50) mmHg VBG HCO3 21 (21-27) mEq/L Sodium (136-145) mEq/L Potassium (3.5-5.1) mEq/L Chloride (98-107) mEq/L Carbon Dioxide (23-29) mEq/L BUN (6-20) mg/dL Creatinine (0.60-1.20) mg/dL Est GFR ( Amer) (> 60) Est GFR (Non-Af Amer) (> 60) BUN/Creatinine Ratio (6-26) Glucose (70-105) mg/dL Calculated Osmolality (280-300) Lactic Acid 0.7 (0.5-2.2) mmol/L Calcium (8.6-10.3) mg/dL Phosphorus (2.7-4.5) mg/dL Magnesium (1.6-2.6) mg/dL Total Bilirubin (0.3-1.0) mg/dL Direct Bilirubin (0.0-0.2) mg/dL Indirect Bilirubin (0.0-1.2) mg/dL AST (13-39) Units/L ALT (7-52) Units/L Alkaline Phosphatase (34-104) Units/L Troponin I < 0.03 (< 0.04) ng/mL Serum Total Protein (6.4-8.9) g/dL Albumin (3.5-5.7) g/dL Globulin (2.4-3.5) g/dL Albumin/Globulin Ratio (1.1-2.2) Urine Color (Yellow) Urine Clarity (Clear) Urine pH (5.0-8.0) pH Units Ur Specific [place] (1.010-1.025) Urine Protein (Neg-Trace) mg/dL Urine Glucose (UA) (Normal) mg/dL Urine Ketones (Negative) mg/dL Urine Blood (Negative) Urine Nitrite (Negative) Urine Bilirubin (Negative) Urine Urobilinogen (Normal) mg/dL Ur Leukocyte Esterase (Negative) Urine Microscopic RBC (0-3) per hpf Urine Microscopic WBC (0-3) per hpf Ur Squamous Epith Cells (None-Few) per lpf Urine Bacteria (None-Few) per hpf Hyaline Casts (None-Few) per lpf Ur Culture Indicated? (NO) - Radiology Data Radiology results reviewed: Yes I reviewed the patient's radiology results. Chest X-Ray 06/17/17 00:00 IMPRESSION: New left lower and right middle lobe opacities concerning for multifocal pneumonia. D/ / Yon Cantu / Yon Cantu Interpreting Provider: Yon Cantu
[2017-06-17] MEDS ORDERED: Dexamethasone 10 MG/ML VIAL PO ONE (00:59)
[2017-06-17] MEDS ORDERED: 0.9 % Sodium Chloride 1,000 ML IVC ONE (01:01)
[2017-06-17] MEDS ORDERED: Azithromycin 500 MG in D5% in Water 250 ML IVPB ONE (01:05)
[2017-06-17] MEDS ORDERED: cefTRIAXone 1,000 MG in Water for inj. (sterile) 20 ML 10 ML IVP ONE (01:05)
[2017-06-17] MEDS ORDERED: Piperacillin/Tazobactam 3.375 GM in 0.9 % Sodium Chloride Mini Bag 100 ML IVPB ONE (01:11)
[2017-06-17 01:13] LABS: Bilirubin,Urine Negative (Negative); Blood,Urine Negative (Negative); Clarity,Urine Cloudy (Clear); Color,Urine Yellow (Yellow); Glucose,Urine (UA) Normal (Normal); Ketones,Urine Negative (Negative); Leukocyte Esterase,Urine Small (Negative); Nitrite,Urine Negative (Negative); PH,Urine 6.5 pH Units (5.0-8.0); Protein,Urine Negative (Neg-Trace); Specific Gravity,Urine 1.017 (1.010-1.025); Urobilinogen,Urine Normal (Normal)
[2017-06-17 01:15] LABS: Bacteria,Urine Few per hpf (None-Few); Hyaline Casts,Urine None Seen per lpf (None-Few); RBC,Urine 0-3 per hpf (0-3); Squamous Epithelial Cell,Urine Many per lpf (None-Few)
--- NOTE | 2017-06-17 01:29 | Emergency Department Note ---
START Narrative - START START: I examined this patient and my medical decision-making was reviewed with the Resident Physician. I agree with the documented findings, disposition and treatment plan as described except to the extent set forth below. 26 year old female presents to the ED with complaints of cough and right sidded rib pain. She is 92% on RA, and 98% on 2LNC. Edward was most recently admitted to the hospital for influenza and treated with tamiflu and states that she is getting progressively worse. Edward has mulitfocal pnuemonia on CXR. We willl start sepsis protocol and then consult OBGYN and admit.
[2017-06-17 01:41] LABS: Basophils % 0.2 %; Eosinophils # 0.2 K/mcL (0.0-0.6); Eosinophils % 1.1 %; Hematocrit 35.8 % (35.3-44.9); Hemoglobin 11.1 g/dL (11.5-15.4); Immature Granulocytes % 0.9 % (0-4); Lymphocytes # 2.7 K/mcL (0.6-4.6); Lymphocytes % 16.3 %; Mean Corpuscular Hemoglobin 25.3 pg (28.0-33.3); Mean Corpuscular Volume 81.5 fL (83.0-100.0); Mean Platelet Volume 9.6 fL (9.4-12.4); Neutrophils # 12.7 K/mcL (1.6-8.9); Nucleated Red Blood Cells 0.1 /100 WBC (0); Platelet Count 411 K/mcL (140-400); Red Blood Count 4.39 M/mcL (3.82-4.97); Red Cell Distribution Width 14.7 % (11.5-14.5); Segmented Neutrophils % 75.5 %
[2017-06-17 01:51] LABS: VBG HCO3 21 mEq/L (21-27); VBG PCO2 34 mmHg (41-51); VBG PO2 128 mmHg (25-50)
[2017-06-17 01:56] LABS: Alanine Aminotransferase 73 Units/L (7-52); Albumin 3.2 g/dL (3.5-5.7); Albumin/Globulin Ratio 0.9 (1.1-2.2); Alkaline Phosphatase 236 Units/L (34-104); Aspartate Amino Transferase 26 Units/L (13-39); BUN/Creatinine Ratio 15 (6-26); Bilirubin,Direct 0.1 mg/dL (0.0-0.2); Bilirubin,Indirect 0.2 mg/dL (0.0-1.2); Bilirubin,Total 0.3 mg/dL (0.3-1.0); Blood Urea Nitrogen 7 mg/dL (6-20); Calcium 9.3 mg/dL (8.6-10.3); Carbon Dioxide 21 mEq/L (23-29); Chloride 106 mEq/L (98-107); Globulin 3.7 g/dL (2.4-3.5); Glucose 90 mg/dL (70-105); Magnesium 1.8 mg/dL (1.6-2.6); Osmolality,Calculated 278 (280-300); Phosphorous 4.6 mg/dL (2.7-4.5); Potassium 3.7 mEq/L (3.5-5.1); Sodium 135 mEq/L (136-145); Total Protein 6.9 g/dL (6.4-8.9); eGFR For Non-African Americans > 60 (> 60)
--- NOTE | 2017-06-17 02:50 | OB/GYN Consult Note ---
Date of Encounter: 06/17/17 Time of Encounter: 02:45 History of Present Illness Consult date: 06/17/17 Reason for consult: other Chief complaint: multifocal pneumonia Past Med Surg Social Fam HX - Past Medical History Medical history: no medical history, other Psychiatric history: no psych history - Past Surgical History Surgical History: , cholecystectomy, other - Social History Smoking Status: Current every day smoker Smokeless Tobacco Status: No Alcohol use: none Drug use: none - Family History Mother Living Status: Still Living Hx Family Cardiac Disorders: No Hx Family Respiratory Disorders: No Hx Family Cancer: No Hx Family GI Disorders: No Hx Family Endocrine Disorder: No Hx Family Neuromuscular Disorders: No Hx Family Neurologic Disorders: No Hx Family HEENT Disorders: No Hx Family Autoimmune Disorders: No Medications and Allergies Pnv95/Ferrous Fumarate/FA [ Vitamin Tablet] 1 each PO DAILY 06/04/17 [ History] Acetaminophen [Tylenol] 650 mg PO Q6HR PRN tablet 06/05/17 [Rx] Oseltamivir [Tamiflu] 75 mg PO BID #8 capsule 06/05/17 [Rx] 3 Allergy/AdvReac Type Severity Reaction Status Date / Time Sulfa (Sulfonamide AdvReac Hives Verified 06/16/17 23:17 Antibiotics) sulfamethoxazole AdvReac Hives Verified 06/16/17 23:17 [From Bactrim] trimethoprim [From Bactrim] AdvReac Hives Verified 06/16/17 23:17 Exam - Vital Signs Vital signs: Initial Vital Signs Temp Pulse Resp BP Pulse Ox 98.2 F 91 16 90/55 96 06/16/17 23:15 06/16/17 23:15 06/16/17 23:15 06/16/17 23:15 06/16/17 23:15 Results Result Diagrams: 06/17/17 01:23 06/17/17 01:23 Abnormal lab results WBC 16.9 K/mcL (4.3-11.1) H 06/17/17 01:23 Hgb 11.1 g/dL (11.5-15.4) L 06/17/17 01:23 MCV 81.5 fL (83.0-100.0) L 06/17/17 01:23 MCH 25.3 pg (28.0-33.3) L 06/17/17 01:23 MCHC 31.0 g/dL (31.6-35.5) L 06/17/17 01:23 RDW 14.7 % (11.5-14.5) H 06/17/17 01:23 Plt Count 411 K/mcL (140-400) H 06/17/17 01:23 Neutrophils # 12.7 K/mcL (1.6-8.9) H 06/17/17 01:23 Nucleated RBCs/100 WBC 0.1 /100 WBC (0) H 06/17/17 01:23 VBG pCO2 34 mmHg (41-51) L 06/17/17 01:43 VBG pO2 128 mmHg (25-50) H 06/17/17 01:43 Sodium 135 mEq/L (136-145) L 06/17/17 01:23 Carbon Dioxide 21 mEq/L (23-29) L 06/17/17 01:23 Creatinine 0.48 mg/dL (0.60-1.20) L 06/17/17 01:23 Calculated Osmolality 278 (280-300) L 06/17/17 01:23 Phosphorus 4.6 mg/dL (2.7-4.5) H 06/17/17 01:23 ALT 73 Units/L (7-52) H 06/17/17 01:23 Alkaline Phosphatase 236 Units/L (34-104) H 06/17/17 01:23 Albumin 3.2 g/dL (3.5-5.7) L 06/17/17 01:23 Globulin 3.7 g/dL (2.4-3.5) H 06/17/17 01:23 Albumin/Globulin Ratio 0.9 (1.1-2.2) L 06/17/17 01:23 Urine Clarity Cloudy (Clear) A 06/16/17 23:30 Ur Leukocyte Esterase Small (Negative) H 06/16/17 23:30 Urine Microscopic WBC 5-15 per hpf (0-3) H 06/16/17 23:30 Ur Squamous Epith Cells Many per lpf (None-Few) H 06/16/17 23:30 All other labs normal. Consult Discharge Plan - Plan Referrals: NONE,PCP [Primary Care Provider] -
--- NOTE | 2017-06-17 03:15 | OB/GYN History & Physical ---
Date of Encounter: 06/18/17 Time of Encounter: 03:00 Assessment and Plan (1) 36 to 37 weeks gestation of Current visit: Yes Status: Acute Patient receives appropriate care with Dr. Navarro She is not in active labor Admit to inpatient for medical management of pneumonia OB will continue to follow patient closely (2) Non-stress test reactive on surveillance Current visit: Yes Status: Acute Baseline 125/ moderate/ +accels/ -decels heart tracing reassuring Continue to monitor with NST (3) History of section Current visit: Yes Status: Acute (4) Sepsis due to pneumonia Current visit: Yes Status: Acute Consult hospitalist. Patient was recently admitted for influenza A infection and has worsening cough and shortness of breath V/S on admission demonstrated HR > 90, RR >20 CXR concerning for multifocal pneumonia Continue with sepsis protocol Zosyn and Vancomycin were administered at ED Continue IVF History of Present Illness Chief complaint: cough, SOB, right-sided rib pain HPI: Ms. Talbert is a 26 year old female at 36 weeks and 5 days who presented to ED with complaints of cough and right-sided rib pain. She was admitted on 06/04/17 for influenza A with tachycardia and was discharged with Tamiflu. The patient reports her symptoms of cough, shortness of breath, chills worsened since then. She has not taken any other medications besides Tamiflu and Tylenol. She denied any fever, nausea, vomiting. Reports good movement. Denies leaking of fluid, vaginal bleeding. Patient denies contractions but reports that she is not 100% sure due to persistent cough. Denies headache, visual disturbances or epigastric pain. At ED, SPO2 was 92% on room air but improved to 98% on 2 L nasal cannula. Chest x-ray demonstrates multifocal pneumonia and patient was started on sepsis protocol. complicated by tobacco smoking affecting in first trimester , history of 2 previous C-sections. Blood Type: O+ GBS: negative Hepatitis B: Nonreactive Varicella IgG: Positive Rubella IgG: Positive Treponema Pallidum Ab: Negative HIV: Nonreactive Past Med Surg Social Fam HX - Past Medical History Medical history: no medical history, other Psychiatric history: no psych history - Past Surgical History Surgical History: , cholecystectomy, other - Social History Smoking Status: Current every day smoker Smokeless Tobacco Status: No Alcohol use: none Drug use: none - Family History Mother Living Status: Still Living Hx Family Cardiac Disorders: No Hx Family Respiratory Disorders: No Hx Family Cancer: No Hx Family GI Disorders: No Hx Family Endocrine Disorder: No Hx Family Neuromuscular Disorders: No Hx Family Neurologic Disorders: No Hx Family HEENT Disorders: No Hx Family Autoimmune Disorders: No Obstetrical History - Pregnancies : 3 Para: 2 Medications and Allergies Pnv95/Ferrous Fumarate/FA [ Vitamin Tablet] 1 each PO DAILY 06/04/17 [ History] Acetaminophen [Tylenol] 650 mg PO Q6HR PRN tablet 06/05/17 [Rx] 3 Allergy/AdvReac Type Severity Reaction Status Date / Time Sulfa (Sulfonamide AdvReac Hives Verified 06/16/17 23:17 Antibiotics) sulfamethoxazole AdvReac Hives Verified 06/16/17 23:17 [From Bactrim] trimethoprim [From Bactrim] AdvReac Hives Verified 06/16/17 23:17 Review of System OB - Constitutional Constitutional ROS IM: as per HPI Exam - Vital Signs Vital signs: Initial Vital Signs Temp Pulse Resp BP Pulse Ox 98.2 F 91 16 90/55 96 06/16/17 23:15 06/16/17 23:15 06/16/17 23:15 06/16/17 23:15 06/16/17 23:15 - Constitutional Constitutional: well developed, well nourished, no acute distress, average body habitus - HEENT HEENT: Normocephaly, Mucus Membranes Moist - Neck Neck exam: full ROM, normal inspection - Lungs Respiratory exam: rales, respiratory distress, tachypnea - Cardiovascular Cardiovascular exam: +S1, +S2, tachycardia - Abdomen Abdomen: Present: bowel sounds normal - Extremities Extremities exam: pedal edema (1+ bilateral) Deep Tendon Reflex Grade: 2+ Normal - Uterus Uterus exam: Present: normal size (Firm, non-tender), normal contour Results Result Diagrams: 06/17/17 01:23 06/17/17 01:23 Abnormal lab results WBC 16.9 K/mcL (4.3-11.1) H 06/17/17 01:23 Hgb 11.1 g/dL (11.5-15.4) L 06/17/17 01:23 MCV 81.5 fL (83.0-100.0) L 06/17/17 01:23 MCH 25.3 pg (28.0-33.3) L 06/17/17 01:23 MCHC 31.0 g/dL (31.6-35.5) L 06/17/17 01:23 RDW 14.7 % (11.5-14.5) H 06/17/17 01:23 Plt Count 411 K/mcL (140-400) H 06/17/17 01:23 Neutrophils # 12.7 K/mcL (1.6-8.9) H 06/17/17 01:23 Nucleated RBCs/100 WBC 0.1 /100 WBC (0) H 06/17/17 01:23 VBG pCO2 34 mmHg (41-51) L 06/17/17 01:43 VBG pO2 128 mmHg (25-50) H 06/17/17 01:43 Sodium 135 mEq/L (136-145) L 06/17/17 01:23 Carbon Dioxide 21 mEq/L (23-29) L 06/17/17 01:23 Creatinine 0.48 mg/dL (0.60-1.20) L 06/17/17 01:23 Calculated Osmolality 278 (280-300) L 06/17/17 01:23 Phosphorus 4.6 mg/dL (2.7-4.5) H 06/17/17 01:23 ALT 73 Units/L (7-52) H 06/17/17 01:23 Alkaline Phosphatase 236 Units/L (34-104) H 06/17/17 01:23 Albumin 3.2 g/dL (3.5-5.7) L 06/17/17 01:23 Globulin 3.7 g/dL (2.4-3.5) H 06/17/17 01:23 Albumin/Globulin Ratio 0.9 (1.1-2.2) L 06/17/17 01:23 Urine Clarity Cloudy (Clear) A 06/16/17 23:30 Ur Leukocyte Esterase Small (Negative) H 06/16/17 23:30 Urine Microscopic WBC 5-15 per hpf (0-3) H 06/16/17 23:30 Ur Squamous Epith Cells Many per lpf (None-Few) H 06/16/17 23:30 All other labs normal. - Attending Attestation I examined this patient and my medical decision-making was reviewed with the Resident Physician. I agree with the documented findings, disposition and treatment plan as described except to the extent set forth below. Sal Hobbs
[2017-06-17] MEDS ORDERED: Naloxone 0.4 MG/ML INJ IVP PRN (03:22)
[2017-06-17] MEDS ORDERED: *HR* Nalbuphine 20 MG/ML AMPUL IVP PRN (07:04)
[2017-06-17] MEDS ORDERED: Ondansetron 4 MG/2 ML VIAL IVP PRN (07:04)
[2017-06-17] MEDS ORDERED: Ipratropium/Albuterol Neb 3 ML IH PRN (07:18)
[2017-06-17] MEDS ORDERED: Albuterol 2.5 MG/3 ML NEBULIZER IH PRN (07:46)
[2017-06-17] MEDS ORDERED: Aminoglycoside Consult 1 EACH MC ONE (07:54)
[2017-06-17] MEDS ORDERED: Vancomycin 1,750 MG in 0.9 % Sodium Chloride 250 ML IVPB SCH (08:00)
[2017-06-17] MEDS: Ringers Solution, Lactated 1,000 ML IVC SCH ×2 (08:14→16:35)
[2017-06-17] MEDS: Prenatal Vit/FA 1 EACH TABLET PO SCH (08:15)
[2017-06-17] MEDS: Azithromycin 500 MG in D5% in Water 250 ML IVPB SCH (08:15)
[2017-06-17] MEDS: *HR* HYDROcodone/Acet 5/325 mg TABLET PO PRN ×2 (08:32→23:22)
[2017-06-17] MEDS: WATER FOR INJ IVP SCH ×2 (10:49→18:06)
[2017-06-17] MEDS: AZTREONAM IVP SCH ×2 (10:49→18:06)
--- NOTE | 2017-06-17 15:22 | Internal Medicine Consult Note ---
Date of Encounter: 06/17/17 Time of Encounter: 13:15 - Assessment and Plan (1) Sepsis due to pneumonia Current Visit: Yes Status: Acute Assessment and plan: Pt does meet sepsis criteria with elevated WBC, Sinus tachycardia and source of inf as PNA Reviewed CXR personally - showed RML, RLL and LLL infiltrates.. MLL PNA Mostly bacterial Cont IV hydration Blood cx already drawn ..will f/u on them Will sent for Sputum cx, Strep PNA, Legionella and Resp viral panel Will give her Duoneb Q4hr JONH Cont O2 Cont symptomatic and supportive care Pt was given Zosyn and Vancomycin in the ER Currently she is on Aztreonam, Vancomycin and Azitrho She is very low risk for MRSA inf, and she already recieved a couple of doses..so will d/c Vancomycin Cont Aztreonam + Azithro for now titrate abx depending on pt's clinical course in next 24-48hrs (2) Acute respiratory failure with hypoxia Current Visit: Yes Status: Acute Assessment and plan: Due to PNA cont O2 try to wean her off the O2 as she tolerates cont on Tele no need of systemic steroids for now cont Duoneb (3) Community acquired pneumonia Current Visit: Yes Status: Acute Qualifiers: Laterality: unspecified laterality Qualified Code(s): J18.9 - Pneumonia, unspecified organism (4) 36 to 37 weeks gestation of Current Visit: Yes Status: Acute Assessment and plan: continue current excellent care by primary OB team (5) Tobacco dependence Current Visit: Yes Status: Acute Assessment and plan: counseled to quit smoking If OB is ok, we can use Nicotine patch Internal Medicine - CN: HPI - Data of Consult Patient: new to practice Requesting Physician: Sal Hobbs - Consult Narrative History of present illness: Ms. Talbert is a 26 year old female with known T2 36W and 5D and chronic tobacco dependence pt who recently had Influenza A positive on 06/04/17 and treated with Tamiflu, now she presented to ER again with progressively worsening SOB, L[place] and COugh with yellowish expectoration. She denied any CP. However she felt severe Rt side lateral chest wall pain y/d which made her come to the ER. She had CXR done in the ER which showed MLL PNA. Pt was admitted in the hospital and started on empirical abx Aztreonam , Azithromycin and Vancomycin. She was given Zosyn and Vancomycin in the ER. Pt stated she is feeling little better now. Still have cough and generalized bodyaches. Past Med Surg Social Fam HX - Past Medical History Medical history: no medical history, other Psychiatric history: no psych history - Past Surgical History Surgical History: , cholecystectomy, ORI/BSO, other - Social History Smoking Status: Current every day smoker Smokeless Tobacco Status: No Alcohol use: none Drug use: none - Family History Mother Living Status: Still Living Hx Family Cardiac Disorders: No Hx Family Respiratory Disorders: No Hx Family Cancer: No Hx Family GI Disorders: No Hx Family Endocrine Disorder: No Hx Family Neuromuscular Disorders: No Hx Family Neurologic Disorders: No Hx Family HEENT Disorders: No Hx Family Autoimmune Disorders: No Review of systems: All the systems are reviewed everything is benign except the systems and symptoms I mentioned in the history of present illness Internal Medicine - CN: Meds Pnv95/Ferrous Fumarate/FA [ Vitamin Tablet] 1 each PO DAILY 06/04/17 [ History] Acetaminophen [Tylenol] 650 mg PO Q6HR PRN tablet 06/05/17 [Rx] 3 Allergy/AdvReac Type Severity Reaction Status Date / Time Sulfa (Sulfonamide AdvReac Hives Verified 06/16/17 23:17 Antibiotics) sulfamethoxazole AdvReac Hives Verified 06/16/17 23:17 [From Bactrim] trimethoprim [From Bactrim] AdvReac Hives Verified 06/16/17 23:17 Internal Medicine - CN: Exam - Constitutional Vitals: Temp Pulse Resp BP Pulse Ox 98.1 F 92 16 109/75 99 06/17/17 07:15 06/17/17 07:15 06/17/17 07:15 06/17/17 07:15 06/17/17 07:15 General appearance IM: Present: A&O X 3, answers questions appropriately - Head Head exam: Present: atraumatic, normal inspection - Neck Neck exam general surgery: Present: full ROM, supple - Respiratory Respiratory exam: Present: decreased breath sounds, rhonchi (coarse BS b/l), wheezes (mild). Absent: CTAB, rales, respiratory distress - Cardiovascular Cardiovascular exam IM: Present: +S1, +S2, tachycardia. Absent: systolic murmur - GI/Abdominal GI/Abdominal exam IM: Present: distended, soft. Absent: rebound, rigid, tenderness Additional comments: - Extremities Exam Extremities exam IM: Absent: calf tenderness, pedal edema, tenderness - Back Exam Back exam: Absent: CVA tenderness (L), CVA tenderness (R) - Neurological Exam Neurological exam: Present: alert, oriented X3, no focal deficits - Psychiatric Psychiatric exam: Present: normal affect, normal mood - Skin Skin exam IM: Present: dry. Absent: rash Internal Medicine - CN: Reslt - Labs CBC & Chem 7: 06/17/17 01:23 06/17/17 01:23 Consult Discharge Plan - Plan Referrals: NONE,PCP [Primary Care Provider] -
[2017-06-17 16:14] LABS: Adenovirus Not Detected (Not Detect); Bordetella Pertussis Not Detected (Not Detect); Chlamydophila pneumoniae Not Detected (Not Detect); Coronavirus 229E Not Detected (Not Detect); Coronavirus HKU1 Not Detected (Not Detect); Coronavirus NL63 Not Detected (Not Detect); Coronavirus OC43 Not Detected (Not Detect); Human Metapneumovirus Not Detected (Not Detect); Human Rhinovirus/Enterovirus Not Detected (Not Detect); Influenza A Subtype 2009 H1 Not Detected (Not Detect); Influenza A Untypeable Not Detected (Not Detect); Influenza B Not Detected (Not Detect); Mycoplasma pneumoniae Not Detected (Not Detect); Parainfluenza Virus 1 Not Detected (Not Detect); Parainfluenza Virus 2 Not Detected (Not Detect); Parainfluenza Virus 3 Not Detected (Not Detect); Parainfluenza Virus 4 Not Detected (Not Detect); Respiratory Syncytial Virus Not Detected (Not Detect)
[2017-06-17] MEDS: Ipratropium/Albuterol Neb 3 ML IH SCH ×3 (21:23→23:25)
[2017-06-18] MEDS: AZTREONAM IVP SCH (01:02)
[2017-06-18] MEDS: WATER FOR INJ IVP SCH (01:02)
[2017-06-18] MEDS: Ringers Solution, Lactated 1,000 ML IVC SCH ×2 (01:03→11:51)
[2017-06-18] MEDS: Ipratropium/Albuterol Neb 3 ML IH SCH ×6 (04:05→23:23)
[2017-06-18 05:58] LABS: Basophils % 0.3 %; Eosinophils # 0.2 K/mcL (0.0-0.6); Eosinophils % 1.2 %; Hematocrit 31.3 % (35.3-44.9); Hemoglobin 9.9 g/dL (11.5-15.4); Immature Granulocytes % 0.9 % (0-4); Lymphocytes # 2.7 K/mcL (0.6-4.6); Lymphocytes % 21.7 %; Mean Corpuscular HGB Conc 31.6 g/dL (31.6-35.5); Mean Corpuscular Hemoglobin 25.9 pg (28.0-33.3); Mean Corpuscular Volume 81.9 fL (83.0-100.0); Mean Platelet Volume 9.7 fL (9.4-12.4); Monocytes # 0.7 K/mcL (0.0-1.3); Monocytes % 5.9 %; Neutrophils # 8.5 K/mcL (1.6-8.9); Platelet Count 363 K/mcL (140-400); Red Blood Count 3.82 M/mcL (3.82-4.97); Red Cell Distribution Width 14.8 % (11.5-14.5)
[2017-06-18] MEDS: Azithromycin 500 MG in D5% in Water 250 ML IVPB SCH (08:00)
[2017-06-18] MEDS: Prenatal Vit/FA 1 EACH TABLET PO SCH (08:01)
[2017-06-18] MEDS ORDERED: Cefepime HCl 2,000 MG in Water for inj. (sterile) 20 ML IVP SCH (10:00)
--- NOTE | 2017-06-18 10:27 | OB/GYN Progress Note ---
Date of Encounter: 06/18/17 Time of Encounter: 10:23 - Assessment and Plan (1) 36 to 37 weeks gestation of Current Visit: Yes Status: Acute (2) Community acquired pneumonia Current Visit: Yes Status: Acute Continue routine care NST daily until discharge Continue antibiotics Possible discharge tomorrow Qualifiers: Laterality: unspecified laterality Qualified Code(s): J18.9 - Pneumonia, unspecified organism Subjective - Subjective Interval history: Pt reports she is feeling better today. Endorses good FM. Denies contractions, LOF, vaginal bleeding, [place], and RUQ pain. Does still complain of rib pain when coughing. Antepartum ROS: movement normal Objective - Vital Signs Vital Signs: Vital Signs Temp Pulse Resp BP Pulse Ox 06/18/17 07:41 18 98 06/18/17 04:05 17 97 06/18/17 03:30 98.0 F 94 15 105/72 97 06/18/17 01:43 96 06/17/17 23:25 17 98 06/17/17 23:00 98.3 F 91 15 102/74 95 06/17/17 21:30 15 96 06/17/17 19:22 97.8 F 97 15 105/70 98 06/17/17 16:33 97.5 F L 91 18 93/65 98 Intake and Output 06/17/17 06/18/17 06/18/17 23:59 07:59 15:59 Intake Total 1010 / 1010 1010 / 1010 480 / 480 Output Total 1600 / 1600 1100 / 1100 Balance -590 / -590 -90 / -90 480 / 480 Intake: IV Fluids 1010 / 1010 1010 / 1010 Lactated Ringers 1,000 ML @ 125 1000 / 1000 1000 / 1000 mls/hr IVC .Q8H JONH Rx#: [id number] Azactam 2,000 MG In Water for 10 inj. (sterile) 10 ML @ 150 mls/ hr IVP Q8H JONH Rx#:[id number] Oral 0 / 0 0 / 0 480 / 480 Output: Urine 1600 / 1600 1100 / 1100 Other: Meal Breakfast Percent of Meal Consumed 90% Weight 110.8 kg Patient Weight 06/18/17 23:59 Weight 110.8 kg - Exam Auscultation: bilateral: wheezes Abdomen: Present: normal appearance, soft, gravid Uterus: Present: normal - Labs Labs: Abnormal lab results WBC 12.2 K/mcL (4.3-11.1) H 06/18/17 05:33 Hgb 9.9 g/dL (11.5-15.4) L 06/18/17 05:33 Hct 31.3 % (35.3-44.9) L 06/18/17 05:33 MCV 81.9 fL (83.0-100.0) L 06/18/17 05:33 MCH 25.9 pg (28.0-33.3) L 06/18/17 05:33 RDW 14.8 % (11.5-14.5) H 06/18/17 05:33 Nucleated RBCs/100 WBC 0.1 /100 WBC (0) H 06/17/17 01:23 VBG pCO2 34 mmHg (41-51) L 06/17/17 01:43 VBG pO2 128 mmHg (25-50) H 06/17/17 01:43 Sodium 135 mEq/L (136-145) L 06/17/17 01:23 Carbon Dioxide 21 mEq/L (23-29) L 06/17/17 01:23 Creatinine 0.48 mg/dL (0.60-1.20) L 06/17/17 01:23 Calculated Osmolality 278 (280-300) L 06/17/17 01:23 Phosphorus 4.6 mg/dL (2.7-4.5) H 06/17/17 01:23 ALT 73 Units/L (7-52) H 06/17/17 01:23 Alkaline Phosphatase 236 Units/L (34-104) H 06/17/17 01:23 Albumin 3.2 g/dL (3.5-5.7) L 06/17/17 01:23 Globulin 3.7 g/dL (2.4-3.5) H 06/17/17 01:23 Albumin/Globulin Ratio 0.9 (1.1-2.2) L 06/17/17 01:23 Urine Clarity Cloudy (Clear) A 06/16/17 23:30 Ur Leukocyte Esterase Small (Negative) H 06/16/17 23:30 Urine Microscopic WBC 5-15 per hpf (0-3) H 06/16/17 23:30 Ur Squamous Epith Cells Many per lpf (None-Few) H 06/16/17 23:30
--- NOTE | 2017-06-18 15:38 | Internal Med Progress Note ---
Date of Encounter: 06/18/17 Time of Encounter: 09:35 - Assessment and plan (1) Sepsis due to pneumonia Current Visit: Yes Status: Acute Assessment and plan: Presented with leukocytosis, tachycardia and tachypnea. Chest x-ray showed bilateral infiltrates concerning for pneumonia. Continue IV antibiotics and follow up cultures, remaining plan as below. Currently hemodynamically stable. DVT prophylaxis with s.c Lovenox; (2) Multifocal pneumonia Current Visit: Yes Status: Acute Assessment and plan: Patient was recently discharged after being treated for influenza A, completed Tamiflu course. Current chest x-ray with bilateral infiltrates. Will change antibiotics to IV cefepime and azithromycin. Follow-up blood cultures. Sputum Gram stain shows few gram-positive rods. Urine Legionella and strep pneumoniae antigens negative. Respiratory infection panel negative. Improving leukocytosis, improved tachycardia and tachypnea. Saturating well on room air, not requiring supplemental oxygen. (3) Acute respiratory failure with hypoxia Current Visit: Yes Status: Acute Assessment and plan: improving; (4) 36 to 37 weeks gestation of Current Visit: Yes Status: Acute Assessment and plan: Obstetrics care per primary team; (5) Tobacco dependence Current Visit: Yes Status: Chronic Assessment and plan: does not crave cigarettes at this time; smoking cessation advised; - Subjective Interval history: Feels better today. Continues to have intermittent cough, mildly productive. No fever, chills. Improved shortness of breath. No nausea, vomiting, diarrhea. - Constitutional Vitals: Temp Pulse Resp BP Pulse Ox 97.6 F 89 16 108/75 96 06/18/17 14:47 06/18/17 14:47 06/18/17 14:47 06/18/17 14:47 06/18/17 14:47 General appearance: Present: A&O X 3, answers questions appropriately - Respiratory Respiratory exam: Present: CTAB, rales (Coarse crackles bilateral bases). Absent: accessory muscle use, rhonchi, wheezes - Cardiovascular Cardiovascular exam: Present: RRR, +S1, +S2. Absent: diastolic murmur, gallop, rubs, systolic murmur - GI/Abdominal GI/Abdominal exam: Present: normal bowel sounds, soft, no peritoneal signs. Absent: distended, tenderness - Extremities Exam Extremities exam: Present: full ROM, warm, radial pulses palpable and symmetrical. Absent: calf tenderness, cyanotic, pedal edema - Neurological Exam Neurological exam: Present: CN II-XII intact, oriented X3, no focal deficits. Absent: pronater drift, facial droop, speech deficit Internal Medicine: Result - Labs CBC & Chem 7: 06/18/17 05:33 06/17/17 01:23 Labs: Short CBC 06/18/17 Range/Units 05:33 WBC 12.2 H (4.3-11.1) K/mcL Hgb 9.9 L (11.5-15.4) g/dL Hct 31.3 L (35.3-44.9) % Plt Count 363 (140-400) K/mcL Neutrophils # 8.5 (1.6-8.9) K/mcL - VTE Reasons for not Prescribing Prophylaxis: Treatment not Indicated - Low risk for VTE Consult Discharge Plan - Plan Referrals: NONE,PCP [Primary Care Provider] -
[2017-06-18] MEDS: *HR* Enoxaparin 40 MG/0.4 ML SYRINGE SQ SCH (17:25)
[2017-06-18] MEDS: Cefepime HCl 2,000 MG in Water for inj. (sterile) 20 ML 20 ML IVP SCH (18:37)
[2017-06-18] MEDS: Acetaminophen 325 MG TABLET PO PRN (22:13)
[2017-06-19] MEDS: Cefepime HCl 2,000 MG in Water for inj. (sterile) 20 ML 20 ML IVP SCH ×2 (04:22→12:23)
[2017-06-19] MEDS: *HR* Enoxaparin 40 MG/0.4 ML SYRINGE SQ SCH (04:23)
[2017-06-19] MEDS: Ipratropium/Albuterol Neb 3 ML IH SCH ×4 (04:36→16:28)
[2017-06-19 06:44] LABS: Basophils # 0.1 K/mcL (0.0-0.2); Basophils % 0.5 %; Eosinophils # 0.2 K/mcL (0.0-0.6); Eosinophils % 1.3 %; Hematocrit 33.7 % (35.3-44.9); Hemoglobin 10.8 g/dL (11.5-15.4); Immature Granulocytes % 1.2 % (0-4); Lymphocytes # 2.5 K/mcL (0.6-4.6); Lymphocytes % 19.8 %; Mean Corpuscular Hemoglobin 26.3 pg (28.0-33.3); Mean Platelet Volume 9.5 fL (9.4-12.4); Monocytes # 0.6 K/mcL (0.0-1.3); Monocytes % 4.4 %; Neutrophils # 9.2 K/mcL (1.6-8.9); Platelet Count 378 K/mcL (140-400); Red Blood Count 4.11 M/mcL (3.82-4.97); Red Cell Distribution Width 14.9 % (11.5-14.5); Segmented Neutrophils % 72.8 %
[2017-06-19 07:04] LABS: BUN/Creatinine Ratio 10 (6-26); Blood Urea Nitrogen 5 mg/dL (6-20); Calcium 9.1 mg/dL (8.6-10.3); Carbon Dioxide 21 mEq/L (23-29); Chloride 106 mEq/L (98-107); Glucose 96 mg/dL (70-105); Osmolality,Calculated 277 (280-300); Potassium 3.8 mEq/L (3.5-5.1); Sodium 135 mEq/L (136-145); eGFR For Non-African Americans > 60 (> 60)
[2017-06-19] MEDS: Acetaminophen 325 MG TABLET PO PRN (08:26)
[2017-06-19] MEDS: Azithromycin 500 MG in D5% in Water 250 ML IVPB SCH (08:27)
[2017-06-19] MEDS: Prenatal Vit/FA 1 EACH TABLET PO SCH (08:27)
[2017-06-19 13:03] VITALS: BP 114/71
--- NOTE | 2017-06-19 16:04 | Discharge Summary ---
Orders not resulted at time of discharge: Pending orders 06/17/17 20:37 Culture,Sputum with Gram Stain [RM] Stat Date of Encounter: 06/19/17 Time of Encounter: 16:00 - Discharge Diagnosis (1) Multifocal pneumonia Priority: Primary Status: Acute Comments: Improved. Discharge home with 4 day course of azithromycin 500 mg PO QD. Follow up with supervisor fusing room in 2-3 days after discharge. Follow up on sputum culture. (2) Sepsis due to pneumonia Priority: Secondary Status: Resolved Comments: Resolved. (3) Acute respiratory failure with hypoxia Priority: Secondary Status: Resolved Comments: Resolved. (4) 36 to 37 weeks gestation of Priority: Secondary Status: Acute Comments: Stable. Follow up with supervisor fusing room in 2-3 days after discharge. (5) Tobacco dependence Priority: Secondary Status: Chronic Comments: Counselled for 10 minutes today on smoking cessation. Not interested in quitting at this time. Hospital course: Ms. Talbert is a 26 year old female with known T2 37W gestation who presented to ED with worsening SOB, [place], and cough. CXR in ED showed MLL PNA. She was admitted to hospital and started on aztreonam, azithromycin, and vancomycin. Vancomycin was discontinued on admission. She was switched from aztreonam to cefepime. She continued 3 days for IV antibiotics total. Her sepsis and acute respiratory failure improved and resolved on day of discharge. She states that her respirations are back to baseline. She will completed 4 more days of PO azithromycin 500 mg QD. She will follow up with supervisor fusing room in 2-3 days after discharge. Patient has met maximum benefit of this hospitalization and will be discharged home in stable condition. Discharge discussed with: patient, nurse, case management Time spent discussing smoking cessation with patient: 3 to 10 minutes - Time Spent with Patient Total time spent providing and/or coordinating discharge services: Greater than 30 minutes - Discharge Medications Prescriptions: Azithromycin [Zithromax Tri-Juan] 500 mg PO DAILY 4 Days #4 tablet Home Medications: Azithromycin [Zithromax Tri-Juan] 500 mg PO DAILY 4 Days #4 tablet 06/19/17 [Rx] Vit/FA 1 each PO DAILY tablet 06/19/17 [Rx] Allergies/Adverse Reactions: 3 Allergy/AdvReac Type Severity Reaction Status Date / Time Sulfa (Sulfonamide AdvReac Hives Verified 06/16/17 23:17 Antibiotics) sulfamethoxazole AdvReac Hives Verified 06/16/17 23:17 [From Bactrim] trimethoprim [From Bactrim] AdvReac Hives Verified 06/16/17 23:17 Date of admission: 06/17/17 03:54 Primary care physician: PCP NONE Consults: 06/17/17 06:04 Consult to Hospitalist [CONS] Routine Consulting Provider: Hospitalist Marlo Reason for Consult: Hospital Acquired Pneumonia Call Completed: No Discharging clinician: Mahad Robin Anticipated date of discharge: 06/19/17 - Constitutional Vitals: Temp Pulse Resp BP Pulse Ox 97.8 F 100 15 114/71 97 06/19/17 13:02 06/19/17 13:02 06/19/17 13:02 06/19/17 13:02 06/19/17 13:02 General appearance: Present: A&O X 3, answers questions appropriately - Head Head exam: Present: atraumatic, normocephalic - Eye Eye exam: Present: normal appearance, PERRL - ENT ENT exam: Present: mucous membranes moist, normal oropharynx - Neck Neck exam general surgery: Present: supple. Absent: tenderness - Respiratory Respiratory exam: Present: CTAB. Absent: accessory muscle use, chest wall tenderness, rales, respiratory distress, rhonchi, wheezes Additional comments: Normal WOB - Cardiovascular Cardiovascular exam: Present: RRR. Absent: diastolic murmur, gallop, rubs, systolic murmur Additional comments: No BLE edema - GI/Abdominal GI/Abdominal exam: Present: normal bowel sounds, soft. Absent: distended, hepatomegaly, splenomegaly, tenderness - Extremities Exam Extremities exam: Absent: cyanotic, pedal edema - Psychiatric Psychiatric exam: Present: normal affect, normal mood. Absent: agitated, anxious, depressed - Skin Skin exam: Present: dry, intact, warm. Absent: cyanosis, rash - Patient Status Disposition: Home, Self-Care Condition: Good Functional capacity at discharge: independent ambulation Overall status at discharge: patient is progressing back to baseline - Discharge Instructions Instructions: Community-acquired Pneumonia (DC), Acute Respiratory Distress Syndrome (DC) Follow Up With: Aj Hobbs DO [Partnered Physician] - - Diet and Activity Activity: resume usual activities as tolerated Diet: regular diet - VTE Reasons for not Prescribing Prophylaxis: Treatment not Indicated - Low risk for VTE
--- NOTE | 2017-06-19 16:32 | OB/GYN Progress Note ---
Date of Encounter: 06/19/17 Time of Encounter: 16:29 - Assessment and Plan (1) 36 to 37 weeks gestation of Current Visit: Yes Status: Acute Plan to discharge home today Patient to follow up as scheduled Patient educated on kick counts and s/s to report to OBGYN Subjective - Subjective Principal diagnosis: Hospital-Acquired Pneumonia Interval history: Patient states is feeling much better. Initial presenting rib pain is improving. Breathing well without shortness of air on room air. Desires discharge. Hospitalist completing discharge summary, instructions, and prescriptions for HAP. Daily NSTs have been reassuring. Patient to be discharged this afternoon; clear from OB standpoint. I examined this patient and my medical decision-making was reviewed with the Resident Physician. I agree with the documented findings, disposition and treatment plan as described except to the extent set forth below. Patient is scheduled to see Dr. Navarro on Thursday June 22, 2017. SAHARA Lu Antepartum ROS: movement normal, no loss of fluid, no vaginal bleeding, no contractions Objective - Vital Signs Vital Signs: Vital Signs Temp Pulse Resp BP Pulse Ox 06/19/17 13:02 97.8 F 100 15 114/71 97 06/19/17 11:37 14 97 06/19/17 07:37 14 97 06/19/17 07:31 97.6 F 75 14 128/83 97 06/19/17 04:37 16 96 06/19/17 03:56 97.7 F 76 18 124/81 96 06/19/17 00:40 97.5 F L 95 15 119/84 97 06/18/17 23:25 18 98 06/18/17 20:50 18 97 06/18/17 20:30 97.6 F 78 16 118/75 97 Intake and Output 06/19/17 06/19/17 06/19/17 07:59 15:59 23:59 Intake Total 1520 / 1520 380 / 380 Output Total 400 / 400 Balance 1520 / 1520 -20 / -20 Intake: IV Fluids 20 / 20 20 / 20 Maxipime 2,000 MG In Water for 20 20 20 / 20 inj. (sterile) 20 ML @ 300 mls/ hr IVP Q8H JONH Rx#:[id number] Oral 1500 / 1500 360 / 360 Output: Urine 400 / 400 Other: Meal Lunch Percent of Meal Consumed 80% # Voids 1 - Exam Auscultation: bilateral: wheezes (transient expiratory wheeze) Abdomen: Present: normal appearance, gravid Uterus: Present: normal - Labs Labs: Abnormal lab results WBC 12.6 K/mcL (4.3-11.1) H 06/19/17 06:02 Hgb 10.8 g/dL (11.5-15.4) L 06/19/17 06:02 Hct 33.7 % (35.3-44.9) L 06/19/17 06:02 MCV 82.0 fL (83.0-100.0) L 06/19/17 06:02 MCH 26.3 pg (28.0-33.3) L 06/19/17 06:02 RDW 14.9 % (11.5-14.5) H 06/19/17 06:02 Neutrophils # 9.2 K/mcL (1.6-8.9) H 06/19/17 06:02 Nucleated RBCs/100 WBC 0.1 /100 WBC (0) H 06/17/17 01:23 VBG pCO2 34 mmHg (41-51) L 06/17/17 01:43 VBG pO2 128 mmHg (25-50) H 06/17/17 01:43 Sodium 135 mEq/L (136-145) L 06/19/17 06:02 Carbon Dioxide 21 mEq/L (23-29) L 06/19/17 06:02 BUN 5 mg/dL (6-20) L 06/19/17 06:02 Creatinine 0.48 mg/dL (0.60-1.20) L 06/19/17 06:02 Calculated Osmolality 277 (280-300) L 06/19/17 06:02 Phosphorus 4.6 mg/dL (2.7-4.5) H 06/17/17 01:23 ALT 73 Units/L (7-52) H 06/17/17 01:23 Alkaline Phosphatase 236 Units/L (34-104) H 06/17/17 01:23 Albumin 3.2 g/dL (3.5-5.7) L 06/17/17 01:23 Globulin 3.7 g/dL (2.4-3.5) H 06/17/17 01:23 Albumin/Globulin Ratio 0.9 (1.1-2.2) L 06/17/17 01:23 Urine Clarity Cloudy (Clear) A 06/16/17 23:30 Ur Leukocyte Esterase Small (Negative) H 06/16/17 23:30 Urine Microscopic WBC 5-15 per hpf (0-3) H 06/16/17 23:30 Ur Squamous Epith Cells Many per lpf (None-Few) H 06/16/17 23:30
== END 2017-06-19 17:42 | disposition home or self-care (01) | DRG 781 ==
LOC: 3ANU 23:14 → EMEROO 23:14 → 3ANU 06-17 05:51
PROVIDERS: ADMIT Obstetrics & Gynecology; ATTEND Obstetrics & Gynecology

== ENCOUNTER 2017-07-04 12:00 | Inpatient (IN) ==
[2017-07-06] MEDS ORDERED: Famotidine 20 MG/2 ML VIAL IVP ONE (10:06)
[2017-07-06] MEDS ORDERED: Metoclopramide 10 MG/2 ML VIAL IVP ONE (10:06)
[2017-07-06] MEDS ORDERED: CeFAZolin Syr 3,000MG/30 ML 3,000 MG/30 ML SYRINGE IVPB ONE (10:06)
[2017-07-06] MEDS ORDERED: Ringers Solution, Lactated 1,000 ML IVC ONE (10:06)
[2017-07-06] MEDS ORDERED: Oxytocin 20 units/ LR 1000 mL 20 UNIT/1,000 ML BAG IVC ONE (10:06)
[2017-07-06] MEDS ORDERED: Ringers Solution, Lactated 1,000 ML ONE (10:13)
[2017-07-06] MEDS ORDERED: Oxytocin 20 units/ LR 1000 mL 20 UNIT/1,000 ML BAG IVC SCH ×2 (10:15→15:30)
[2017-07-06] MEDS ORDERED: Ringers Solution, Lactated 1,000 ML IVC SCH ×3 (10:15→15:30)
[2017-07-06 10:38] LABS: Basophils % 0.2 %; Eosinophils # 0.2 K/mcL (0.0-0.6); Eosinophils % 1.4 %; Hematocrit 34.8 % (35.3-44.9); Immature Granulocytes % 0.7 % (0-4); Lymphocytes # 2.7 K/mcL (0.6-4.6); Lymphocytes % 22.3 %; Mean Corpuscular HGB Conc 31.6 g/dL (31.6-35.5); Mean Corpuscular Hemoglobin 25.2 pg (28.0-33.3); Mean Corpuscular Volume 79.8 fL (83.0-100.0); Mean Platelet Volume 9.7 fL (9.4-12.4); Monocytes # 0.7 K/mcL (0.0-1.3); Monocytes % 5.8 %; Neutrophils # 8.4 K/mcL (1.6-8.9); Platelet Count 345 K/mcL (140-400); Red Blood Count 4.36 M/mcL (3.82-4.97); Red Cell Distribution Width 14.9 % (11.5-14.5); Segmented Neutrophils % 69.6 %
[2017-07-06 10:48] LABS: Amphetamine Screen,Urine Negative ng/mL (Cutoff=1000); Barbiturate Screen,Urine Negative ng/mL (Cutoff=200); Benzodiazepines Screen,Urine Negative ng/mL (Cutoff=200); Cannabinoid Screen,Urine Negative ng/mL (Cutoff = 50); Cocaine Screen,Urine Negative ng/mL (Cutoff= 300); Opiate Screen,Urine Negative ng/mL (Cutoff=300); Phencyclidine Screen,Urine Negative ng/mL (Cutoff=25)
[2017-07-06] MEDS ORDERED: Lidocaine -MPF 1% 2 ML VIAL ONE (10:49)
--- NOTE | 2017-07-06 11:10 | OB/GYN History & Physical ---
Date of Encounter: 07/06/17 Time of Encounter: 11:10 Assessment and Plan (1) and not yet delivered in third trimester Current visit: Yes Status: Acute (2) 39 weeks gestation of Current visit: Yes Status: Acute (3) Previous section complicating Current visit: Yes Status: Acute Patient is scheduled for repeat low transverse section with bilateral partial salpingectomy` (4) Family planning advice Current visit: Yes Status: Acute History of Present Illness HPI: Ms. Talbert is a 26 year old female 3 para 2 at 39-3/7 weeks who presented for repeat section. Patient has history of 2 previous sections and was advised she needed a repeat. She has also wanting a tubal ligation at the same time. The risks and benefits of a tubal ligation was extended to patient with failure rate of 5-8000 with increased risk of ectopic if was to occur. Patient's care was complicated with being diagnosed with influenza A during the having to be admitted and subsequently getting readmitted for pneumonia. Has done well since that time. Patient is GBS negative Rh+ rubella positive Past Med Surg Social Fam HX - Past Medical History Source: patient, old records reviewed Medical history: no medical history, other Psychiatric history: no psych history - Past Surgical History Surgical History: (x 2), cholecystectomy, other - Social History Smoking Status: Current every day smoker Smokeless Tobacco Status: No Alcohol use: none Drug use: none Occupational status: employed Current living situation: Home - Independent Activity Level: Independent ambulation Recent Out of Country Travel Within the Last 8 Weeks: No Exposure or Possible Exposure to Illness During Travel: No - Family History Mother Family Member Ethnicity: Non- Living Status: Still Living Hx Family Cardiac Disorders: No Hx Family Respiratory Disorders: No Hx Family Cancer: No Hx Family GI Disorders: No Hx Family Genitourinary Disorders: No Hx Family Endocrine Disorder: No Hx Family Neuromuscular Disorders: No Hx Family Neurologic Disorders: No Hx Family HEENT Disorders: No Hx Family Autoimmune Disorders: No - Additional Family History Additional family history: Family history noncontributory Obstetrical History - Pregnancies : 3 Para: 2 Term: 2 : 0 Ab's: 0 Livin Medications and Allergies Vit/FA 1 each PO DAILY tablet 06/19/17 [Rx] 3 Allergy/AdvReac Type Severity Reaction Status Date / Time Sulfa (Sulfonamide AdvReac Hives Verified 06/16/17 23:17 Antibiotics) sulfamethoxazole AdvReac Hives Verified 06/16/17 23:17 [From Bactrim] trimethoprim [From Bactrim] AdvReac Hives Verified 06/16/17 23:17 Exam - Constitutional Constitutional: well developed, well nourished, no acute distress, obese - HEENT HEENT: Oral Lesions, EOMI, PERRL, Mucus Membranes Moist - Neck Neck exam: full ROM - Lungs Respiratory exam: CTAB - Cardiovascular Cardiovascular exam: RRR - Abdomen Abdomen: Present: bowel sounds normal, gravid - Vagina Vagina: Present: normal moisture - Cervix Dilation: 0 Effacement: 50 Station: -3 ( heart tones 140s reactive no contraction seen) Results Result Diagrams: 07/06/17 10:26 Abnormal lab results WBC 12.1 K/mcL (4.3-11.1) H 07/06/17 10:26 Hgb 11.0 g/dL (11.5-15.4) L 07/06/17 10:26 Hct 34.8 % (35.3-44.9) L 07/06/17 10:26 MCV 79.8 fL (83.0-100.0) L 07/06/17 10:26 MCH 25.2 pg (28.0-33.3) L 07/06/17 10:26 RDW 14.9 % (11.5-14.5) H 07/06/17 10:26 All other labs normal.
[2017-07-06] MEDS ORDERED: Morphine Sulfate/PF 5mg/10mL Vial ONE (11:27)
[2017-07-06] MEDS ORDERED: *HR* Phenylephrine 10 MG/ML VIAL ONE (11:29)
--- NOTE | 2017-07-06 11:38 | Anesthesia Evaluation PreOp ---
Date of Encounter: 07/06/17 Time of Encounter: 11:15 - Past History Planned Operation: Repeat csection/spinal Cardiac History: Denies any Significant Hx Pulmonary History: Former smoker (quit several weeks ago), Pack/yr (7pk/yr), Other (Acquired flu 1month ago, double pneumonia 2 weeks ago with antibiotic administration.) PUMPER GAUGER History: Denies Any Significant HX Other Medical History: Denies Any Significant HX, GERD Anesthesia History: No Prior Anesthetic Complications, Past Anesthesia (nose surgery, knee arthroscopy, wisdom teeth extraction, T&A, lap cholecystectomy) : Yes Alcohol Use: none Drug use: none Medications and Allergies Vit/FA 1 each PO DAILY tablet 06/19/17 [Rx] 3 Allergy/AdvReac Type Severity Reaction Status Date / Time Sulfa (Sulfonamide AdvReac Hives Verified 06/16/17 23:17 Antibiotics) sulfamethoxazole AdvReac Hives Verified 06/16/17 23:17 [From Bactrim] trimethoprim [From Bactrim] AdvReac Hives Verified 06/16/17 23:17 - Meds/Allergy Pre-op Review Medications Reviewed: Yes Allergies Reviewed: Yes Anesthesia Results - Labs 07/06/17 10:26 Anesthesia Exam BP 110/73 P 84 R 16 T 97.7 Height: 5'5" Weight: 110.7kg NPO (# of Hours): 13 Pain Scale: 0 Pain Scale Used: Numeric (1 - 10) - HEENT Pupil (Motor): Pupils equal Mallampati: II Teeth: Normal Oral Opening: Greater than 3 - PUMPER GAUGER LOC: Oriented PUMPER GAUGER Motor: Normal RUE, Normal LUE, Normal RLE, Normal LLE, Normal Face PUMPER GAUGER Sensory: Normal: RUE, LUE, RLE, LLE, Face - Cardiac Rhythm: Regular Murmur: None JVD: No Carotid Bruit: No - Pulmonary Breath Sounds: bilateral Clear Respiratory Effort: Symmetrical Anesthesia Assess/Plan ASA Score: 2 Modified [place] Scale for Level of Consciousness: Cooperative, oriented, and tranquil Anesthetic Plan: Regional Autologous Blood: No Monitoring Plan: Standard Monitors Recovery Plan: PACU
[2017-07-06] MEDS ORDERED: Dexamethasone 4 MG/ML VIAL ONE (12:30)
[2017-07-06] MEDS ORDERED: Ondansetron 4 MG/2 ML VIAL ONE (12:30)
[2017-07-06] MEDS ORDERED: EPHEDrine 50 MG/ML VIAL ONE (12:35)
--- NOTE | 2017-07-06 12:48 | Anesthesia Procedures ---
Date of Encounter: 07/06/17 Time of Encounter: 12:28 Procedures: Anesthesia - Epidural/Spinal Patient ID/Chart reviewed: Yes Patient examined: Yes OB Eval: Gestational age: 39.3 OB Eval: : 3 OB Eval: Hx Para: 2 OB Eval: Contractions: Non-stressed pattern Consent Obtained: Yes Supplemental Oxygen: None/Room Air Site Prep: Aseptic Technique, Sterile prep and drape, Povidone-Iodine 1% Patient position: upright Local Anesthetic: Lidocaine 1% Amount of Local Anesthetic used: 3 Interspace Used: L3-L4 Blood: No CSF: Yes Paresthesia: No Spinal Needle Gauge: 25 Spinal Dose: Bupivicaine 0.75% 1.6ml Morphine 250mcg Procedure: Intrathecal dose administered in upright position by Dylon Rivera CRNA SRNA 2nd pass without any immediate noted complications. VSS throughout. Supine for ceserean section. First pass L4-L unable to pass, 2nd pass L3-4 successful. Vitals + FHT's: See anesthesia record
[2017-07-06] MEDS ORDERED: Lidocaine -MPF 2% 5 ML VIAL ONE (13:28)
--- NOTE | 2017-07-06 13:44 | OB/GYN Procedure Note ---
Section - Date of procedure: 07/06/17 Preop diagnosis: other (Intrauterine at 39 and 3/7 weeks, previous section 2, desires sterilization) Post-op diagnosis: same Procedure: repeat low transverse, bilateral tubal ligation Surgeon: Aj Hobbs Estimated blood loss (cc): 350 Was there an temporary office assistant present: Yes Practice Advisor: Duc Cross ([id number]) Traffic Engineer: Joaquin Vallejo Anesthesia Type: Spinal section complications: none Disposition: L&D Recovery Room Specimens: Right tube segment, Left tube segment - (s) Infant A Delivery Date: 07/06/17 Infant Delivery Time: 12:52 Presentation: vertex Position: JÚNIOR Route of delivery: other ( section) Gender: Male Viability: Viable Pounds: 8 Ounces: 4 Gram Weight: 3.75 kg at 1 minute: 9 at 5 minutes: 9 Shoulder Dystocia: not encountered Specimens collected: cord blood Placenta: spontaneous Cord: 3 umbilical vessels - Narrative Narrative: Patient is a 26-year-old 3 para 2 39-3/7 weeks who presented for repeat section. Patient has a history of 2 previous sections and was scheduled for repeat patient also wanted a tubal ligation at the same time. The risks and benefits of a tubal ligation was expanded to patient with failure rate of 3-5 per thousand with increased risk of ectopic if was to occur. Procedure: Patient was taken to the operating room where spinal anesthesia was found to be adequate. She was placed in the dorsal supine position with a leftward tilt and prepped and draped in usual fashion. Timeout was then obtained. A Pfannenstiel incision was made with a scalpel and carried down to the underlying tissue to the fascia was identified. The fascia was nicked in the midline extended laterally with the Wray scissors. The superior and inferior edges of the fascia grasped tented up dissected off the rectus muscles. Rectus muscles were in the midline parietal peritoneum was identified tented up and entered sharply. This was extended superiorly for a missed months as is. The peritoneum was attached to the uterus this was taken down with Metzenbaums mom scissors. Once it was free the lower uterine segment was noted be very thin I could not really make a bladder flap we decided we discovered little bit higher. A scalpel was used to incise the lower segment it was paper thin and was extended laterally with digital manipulation. Membranes were ruptured clear fluid noted. The infant's head was delivered followed by delivery of the body cord is clamped and cut and was handed off to waiting pediatric team. Cord blood was collected and placenta was then delivered spontaneously with a three-vessel cord. Uterus was exteriorized cleaned of all clots and debris and then the lower uterine segment was closed using 0 Vicryl in a running locking stitch by a single layer closure. There was not enough tissue to really make a second layer and we did have good hemostasis. Attention was then turned to the fallopian tubes at the ampullary region a knuckle of the tube was suture ligated with 0 plane 2 then the knuckle was excised including the fimbriated end. This was repeated on the opposite side where a similar fashion. Good hemostasis was noted uterus is returned to the abdomen the gutters were cleaned of all clots and debris and copiously irrigated. No active bleeding was noted by the peritoneum was brought together with a 2-0 Vicryl in a running stitch, the fascia was closed using an #1 stratafix in a running stitch and the skin was closed using a 4-0 Vicryl in a subcuticular manner. All needle/sponge counts were correct 3 she did receive preoperative antibiotics. A raman dressing was applied.
[2017-07-06] MEDS ORDERED: Ondansetron 4 MG/2 ML VIAL IVP ONE (13:51)
[2017-07-06] MEDS ORDERED: MORPHINE SUL Oral CONC 10 MG/0.5 ML ORAL.SYG SL PRN (13:51)
[2017-07-06] MEDS ORDERED: Naloxone 0.4 MG/ML INJ IVP PRN ×2 (13:51→13:53)
[2017-07-06] MEDS ORDERED: Ondansetron 4 MG/2 ML VIAL IVP PRN ×2 (13:53→15:30)
[2017-07-06] MEDS ORDERED: *HR* OxyCODONE/APAP 5/325 TABLET PO PRN ×2 (13:53→15:30)
[2017-07-06] MEDS ORDERED: Ibuprofen 400 MG TABLET PO PRN (13:53)
[2017-07-06] MEDS ORDERED: Sennosides 8.6 MG TABLET PO PRN (15:30)
[2017-07-06] MEDS ORDERED: Simethicone 80 MG TAB.CHEW PO PRN (15:30)
[2017-07-06] MEDS ORDERED: Metoclopramide 10 MG/2 ML VIAL IVP PRN (15:30)
--- NOTE | 2017-07-06 19:42 | Anesthesia Evaluation Post Op ---
Date of Encounter: 07/06/17 Time of Encounter: 15:30 - Vital Signs Vital Signs: Vital Signs Temperature 98.2 F 07/06/17 16:00 Pulse Rate 61 07/06/17 16:00 Respiratory Rate 16 07/06/17 16:00 Blood Pressure 122/59 07/06/17 16:00 O2 Sat by Pulse Oximetry 98 07/06/17 16:00 Temperature 98.6 F 07/06/17 19:05 Pulse Rate 86 07/06/17 19:05 Respiratory Rate 16 07/06/17 19:05 Blood Pressure 125/72 07/06/17 19:05 O2 Sat by Pulse Oximetry 97 07/06/17 19:05 - Lungs Lungs: Clear Ascult./Percussion - Airway Airway: Non-obstructed - Cardiovascular Regular Rate - Mental Status Mental Status: Alert & Oriented, Answers Appropriately - Pain Pain Scale: 3 Pain Scale used: Numeric (1 - 10) - Nausea Vomiting Nausea Vomiting: Not Present - Hydration Hydration: NPO, Haskins catheter - Discharge PostOp Status: Transfer Patient to floor
[2017-07-06] MEDS ORDERED: *HR* Nalbuphine 20 MG/ML AMPUL IVP PRN (20:28)
[2017-07-07] MEDS: Ibuprofen 600 MG TABLET PO PRN ×2 (06:27→15:50)
[2017-07-07] MEDS: Prenatal Vit/FA 1 EACH TABLET PO SCH (08:21)
[2017-07-07 08:43] LABS: Basophils % 0.1 %; Eosinophils % 0.1 %; Hematocrit 30.6 % (35.3-44.9); Hemoglobin 9.5 g/dL (11.5-15.4); Immature Granulocytes % 0.6 % (0-4); Lymphocytes # 2.5 K/mcL (0.6-4.6); Lymphocytes % 15.1 %; Mean Corpuscular Hemoglobin 25.2 pg (28.0-33.3); Mean Corpuscular Volume 81.2 fL (83.0-100.0); Mean Platelet Volume 10.3 fL (9.4-12.4); Monocytes % 6.3 %; Neutrophils # 12.7 K/mcL (1.6-8.9); Platelet Count 336 K/mcL (140-400); Red Blood Count 3.77 M/mcL (3.82-4.97); Red Cell Distribution Width 14.9 % (11.5-14.5); Segmented Neutrophils % 77.8 %
[2017-07-07] MEDS ORDERED: Prenatal Vit/FA 1 EACH TABLET PO SCH (09:00)
--- NOTE | 2017-07-07 09:01 | OB/GYN Progress Note ---
Date of Encounter: 07/07/17 Time of Encounter: 08:59 - Assessment and Plan (1) S/P section Current Visit: Yes Status: Acute Stable POD #1 Continue current management Anticipate discharge tomorrow. Subjective - Subjective Patient reports: appetite normal, voiding normally, pain well controlled, ambulating normally : doing well Objective - Vital Signs Latest vital signs: Vital Signs Temp Pulse Pulse Resp BP Pulse Ox 07/07/17 08:05 98.2 F 74 18 103/57 07/07/17 03:45 97.9 F 65 16 104/57 95 07/07/17 00:45 98.4 F 65 16 103/56 95 07/06/17 19:45 97.9 F 75 16 104/60 95 07/06/17 19:05 98.6 F 86 86 16 125/72 97 07/06/17 18:03 98.0 F 86 16 125/72 97 07/06/17 17:06 16 07/06/17 17:00 98.0 F 77 18 103/68 07/06/17 16:32 16 07/06/17 16:29 97.8 F 76 18 122/67 98 07/06/17 16:00 98.2 F 61 18 122/59 98 Intake and Output 07/06/17 07/07/17 07/07/17 23:59 07:59 15:59 Intake Total 1700 / 1700 1200 / 1200 Output Total 700 / 700 3050 / 3050 Balance 1000 / 1000 -1850 / -1850 Intake: Oral 1700 / 1700 200 / 200 Other 1000 / 1000 Output: Catheter 700 / 700 3050 / 3050 Other: Meal Dinner Percent of Meal Consumed 100% Weight 117.1 kg 109.679 kg Patient Weight 07/07/17 23:59 Weight 109.679 kg - Exam Lungs: bilateral: normal Chest: Normal S1, Normal S2 Extremities: Present: normal Abdomen: Present: normal appearance, soft Incision: Present: dressed (KG) Uterus: Present: normal Comments: Fundus at U - Labs Labs: Laboratory Results - last 24 hr 07/06/17 07/06/17 10:26 10:26 WBC 12.1 H RBC 4.36 Hgb 11.0 L Hct 34.8 L MCV 79.8 L MCH 25.2 L MCHC 31.6 RDW 14.9 H Plt Count 345 MPV 9.7 Immature Gran % 0.7 Seg Neutrophils % 69.6 Lymphocytes % 22.3 Monocytes % 5.8 Eosinophils % 1.4 Basophils % 0.2 Neutrophils # 8.4 Lymphocytes # 2.7 Monocytes # 0.7 Eosinophils # 0.2 Basophils # 0.0 Urine Opiates Screen Negative Ur Barbiturates Screen Negative Ur Phencyclidine Scrn Negative Ur Amphetamines Screen Negative U Benzodiazepines Scrn Negative Urine Cocaine Screen Negative U Marijuana (THC) Screen Negative
[2017-07-07] MEDS: *HR* OxyCODONE/APAP 10/325 TABLET PO PRN (20:43)
[2017-07-08] MEDS: *HR* OxyCODONE/APAP 10/325 TABLET PO PRN (07:02)
[2017-07-08] MEDS: Ibuprofen 600 MG TABLET PO PRN (07:02)
[2017-07-08] MEDS: Prenatal Vit/FA 1 EACH TABLET PO SCH (08:04)
[2017-07-08 08:11] VITALS: BP 125/79
--- NOTE | 2017-07-08 08:34 | Discharge Summary ---
Date of Encounter: 07/08/17 Time of Encounter: 08:30 - Discharge Diagnosis (1) and not yet delivered in third trimester Priority: Secondary Status: Acute (2) 39 weeks gestation of Priority: Secondary Status: Acute (3) Previous section complicating Priority: Secondary Status: Acute (4) Family planning advice Priority: Secondary Status: Acute (5) S/P section Priority: Primary Status: Acute - Discharge Medications Prescriptions: OxyCODONE/APAP 5/325 [Percocet 5/325 MG] 1 each PO Q4HR PRN 7 Days #28 tablet PRN Reason: Mild To Moderate Pain Ibuprofen [Motrin] 600 mg PO Q6HR PRN #30 tablet PRN Reason: Cramping Ferrous Sulfate 325 mg PO DAILY #30 tablet Home Medications: Vit/FA 1 each PO DAILY tablet 06/19/17 [Rx] Ferrous Sulfate 325 mg PO DAILY #30 tablet 07/08/17 [Rx] Ibuprofen [Motrin] 600 mg PO Q6HR PRN #30 tablet 07/08/17 [Rx] OxyCODONE/APAP 5/325 [Percocet 5/325 MG] 1 each PO Q4HR PRN 7 Days #28 tablet [Rx] Allergies/Adverse Reactions: 3 Allergy/AdvReac Type Severity Reaction Status Date / Time Sulfa (Sulfonamide AdvReac Hives Verified 06/16/17 23:17 Antibiotics) sulfamethoxazole AdvReac Hives Verified 06/16/17 23:17 [From Bactrim] trimethoprim [From Bactrim] AdvReac Hives Verified 06/16/17 23:17 Data Procedures and tests throughout hospitalization: Laboratory Tests 07/06/17 07/06/17 07/07/17 10:26 10:26 07:21 WBC 12.1 H 16.3 H RBC 4.36 3.77 L Hgb 11.0 L 9.5 L D Hct 34.8 L 30.6 L MCV 79.8 L 81.2 L MCH 25.2 L 25.2 L MCHC 31.6 31.0 L RDW 14.9 H 14.9 H Plt Count 345 336 MPV 9.7 10.3 Immature Gran % 0.7 0.6 Seg Neutrophils % 69.6 77.8 Lymphocytes % 22.3 15.1 Monocytes % 5.8 6.3 Eosinophils % 1.4 0.1 Basophils % 0.2 0.1 Neutrophils # 8.4 12.7 H Lymphocytes # 2.7 2.5 Monocytes # 0.7 1.0 Eosinophils # 0.2 0.0 Basophils # 0.0 0.0 Urine Opiates Screen Negative Ur Barbiturates Screen Negative Ur Phencyclidine Scrn Negative Ur Amphetamines Screen Negative U Benzodiazepines Scrn Negative Urine Cocaine Screen Negative U Marijuana (THC) Screen Negative Labs on day of discharge: Labs from last 24 hours 07/07/17 07:21 WBC 16.3 H RBC 3.77 L Hgb 9.5 L D Hct 30.6 L MCV 81.2 L MCH 25.2 L MCHC 31.0 L RDW 14.9 H Plt Count 336 MPV 10.3 Immature Gran % 0.6 Seg Neutrophils % 77.8 Lymphocytes % 15.1 Monocytes % 6.3 Eosinophils % 0.1 Basophils % 0.1 Neutrophils # 12.7 H Lymphocytes # 2.5 Monocytes # 1.0 Eosinophils # 0.0 Basophils # 0.0 Date of admission: 07/06/17 09:45 Primary care physician: PCP JERRI Discharging clinician: Aj Hobbs Anticipated date of discharge: 07/08/17 - Patient Status Disposition: Home, Self-Care Condition: Good Functional capacity at discharge: independent ambulation Overall status at discharge: patient is progressing back to baseline - Discharge Instructions Follow Up With: JERRI,PCP [Primary Care Provider] - Aj Hobbs DO [Partnered Physician] - Additional Instructions: Perineal Care: Always wipe front to back Change your pad frequently Use your nathan bottle with warm water and spray front to back Do not douche, use tampons, have sexual intercourse or put anything in your vagina for 4-6 weeks after delivery Bleeding: Vaginal bleeding can last up to 6 weeks Your menstrual period may return as early as 6 weeks after you are discharged from the hospital [place]/Stitches Care: Vaginal Delivery Vaginal stitches will dissolve within 4-6 weeks Follow perineal care instructions Care Stitches will dissolve on their own If you have conor, they will need to be removed in the doctors office within 5-7 days. You may shower with stitches or conor Drip plan or soapy water over the incision to clean. Pat dry gently with a clean towel. Make sure you completely dry under the skin folds DO NOT USE powders, lotions, rubbing alcohol or hydrogen peroxide on or around your incision. This will slow your wound healing It is normal to have soreness, burning, tingling, itchiness and/or numbness as your incision heals Activity: Rest frequently Do not lift anything heavier than a gallon of milk, up to 10-15 pounds No driving for 1-2 weeks for Vaginal delivery No driving for 2-4 weeks for delivery Take stairs slowly, one at a time Gradually increase your daily activity until you are back to your normal routine Do not exercise until you have had your follow-up appointment Bathing: Take a shower daily Do not take a tub bath for the first 4 weeks Diet: Drink plenty of water and fruit juices Eat a well-balanced diet with foods high in fiber such as fruits and vegetables Depression: Your hormones have a major impact on your feelings and emotions. Hormone imbalance may cause changes in your mood, creating unfamiliar thoughts and actions. Support is available to help you understand and cope with these feelings and mood changes. If you answer yes to any of the following questions, please call your health care provider: Are you having trouble sleeping? Are you feeling isolated? Have you lost your appetite? Are you having thoughts of hurting yourself or others? WARNING SIGNS: Heavy bleeding from the vagina (blood is bright red and soaks a sanitary pad in an hour or less.) Passing a blood clot larger than your fist Discharge from the vagina that has a bad odor Temperature over 100.4 F, or if you feel cold and have chills An episiotomy site that is warm, swollen or oozing. Use a mirror if needed Urination (pee) that is painful, very red and swollen or leaking fluid An incision that is painful, very red and swollen and leaking fluid An incision that has come open Breasts that are painful or full with flu like symptoms Redness, warmth or swelling in the calf of your leg Trouble breathing, dizziness, visual disturbance or faintness *Notify your health care provider immediately or go to the nearest Emergency Room if you experience any of the above signs.* To contact the nurses station 24 hours a day, For non-urgent, routine questions, please call the office at - Diet and Activity Activity: increase activity as tolerated Diet: advance to your usual diet Hospital Course Procedures: repeat LTCS with BPS Reason for admission: section Delivery: section complications: none Discharge diagnosis: IUP at term delivered Hospital course: Patient is a 26-year-old female who presented for repeat section with tubal ligation. Patient underwent the surgery without any complications hospital course was unremarkable she was discharged home on hospital day #2 with a prescription for Percocet 5 mg #28 1 every 6 hours for 7 days as needed, Motrin 600 mg 1 every 6 hours as needed for pain and iron sulfate 325 mg daily she will follow up in the office in 2 weeks. Patient condition at time of discharge was stable. Time Attestation: Total time spent providing and/or coordinating discharge services: - VTE Documentation of Mechanical Device: Intermittent pneumatic compression device Exam - Constitutional Vitals: Temp Pulse Resp BP Pulse Ox 97.9 F 90 18 125/79 95 07/08/17 08:10 07/08/17 08:10 07/08/17 08:10 07/08/17 08:10 07/07/17 20:40 General appearance IM: mild distress, A&O X 3, obese - Respiratory Respiratory exam: Present: CTAB - Cardiovascular Cardiovascular exam IM: Present: RRR - GI/Abdominal GI/Abdominal exam IM: normal bowel sounds Incision: normal, intact, dressed - Uterus Position: At Umbilicus
== END 2017-07-08 10:48 | disposition home or self-care (01) | DRG 766 ==
LOC: 1NENULAB 07-06 09:45 → 1NENUOBS 07-06 15:26
PROVIDERS: ADMIT Obstetrics & Gynecology; ATTEND Obstetrics & Gynecology